=== PATIENT | female | born 1990 ===

== ENCOUNTER 2017-02-05 13:16 | Emergency (ER) | payer OTHER ==
[2017-02-05] MEDS ORDERED: SODIUM CHLORIDE 0.9% 1,000 ML IV STA ×2 (13:44→15:07)
[2017-02-05] MEDS ORDERED: SODIUM CHLORIDE 0.9% 500 ML IV STA (13:44)
[2017-02-05] MEDS ORDERED: ONDANSETRON 4 MG/2 ML VIAL IVP STA (13:44)
[2017-02-05] MEDS ORDERED: PANTOPRAZOLE 40 MG/10 ML VIAL IVP STA (13:45)
[2017-02-05] MEDS ORDERED: DICYCLOMINE 10 MG/ML 2 ML AMP IM STA (13:45)
--- NOTE | 2017-02-05 13:49 | ED ---
General Adult HPI - General Chief complaint: Nausea/Vomiting/Diarrhea Stated complaint: Vomiting Time Seen by Provider: 02/05/17 13:38 Source: patient, RN notes reviewed Mode of arrival: wheelchair Limitations: no limitations - History of Present Illness Initial comments: Patient is a 26-year-old female who presents emergency room today with a chief complaint of nausea vomiting diarrhea that started last night. Patient admits to multiple episodes. States not able to keep anything down. Denies any signs of blood in the emesis or stool. Does admit some abdominal cramping in the upper abdomen. Denies any other complaints or symptoms. States she's never had similar symptoms in the past. Patient denies any recent fever, chills, shortness of breath, chest pain, back pain, numbness or tingling, dysuria or hematuria, constipation, headaches or visual changes, or any other complaints. - Related Data Previous Rx's Medication Instructions Recorded Omeprazole 20 mg PO DAILY #20 capsule. 02/05/17 Ondansetron Odt [Zofran ODT] 4 mg PO Q8HR PRN #20 tab 02/05/17 Allergies Allergy/AdvReac Type Severity Reaction Status Date / Time No Known Allergies Allergy Verified 02/05/17 13:41 Review of Systems ROS Statement: Those systems with pertinent positive or pertinent negative responses have been documented in the HPI. ROS Other: All systems not noted in ROS Statement are negative. Past Medical History Past Medical History: No Reported History History of Any Multi-Drug Resistant Organisms: None Reported Past Surgical History: No Surgical Hx Reported Past Psychological History: No Psychological Hx Reported Smoking Status: Current every day smoker Past Alcohol Use History: None Reported Past Drug Use History: None Reported General Exam - General Exam Comments Initial Comments: General: The patient is awake and alert, in mild distress. Eye: Pupils are equal, round and reactive to light, extra-ocular movements are intact. No nystagmus. There is normal conjunctiva bilaterally. No signs of icterus. Ears, nose, mouth and throat: There are moist mucous membranes and no oral lesions. Neck: The neck is supple, there is no tenderness or JVD. Cardiovascular: There is a regular rate and rhythm. No murmur, rub or gallop is appreciated. Respiratory: Lungs are clear to auscultation, respirations are non-labored, breath sounds are equal. No wheezes, stridor, rales, or rhonchi. Gastrointestinal: Normal appearance abdomen. Normal bowel sounds. Abdomen soft on palpation. Patient does have tenderness in the both right and left upper quadrants along with epigastric areas. No rebound tenderness. No guarding. Musculoskeletal: Normal ROM, no tenderness. Strength 5/5. Sensation intact. Pulses equal bilaterally 2+. Neurological: A&O x 3. CN II-XII intact, There are no obvious motor or sensory deficits. Coordination appears grossly intact. Speech is normal. Skin: Skin is warm and dry and no rashes or lesions are noted. Psychiatric: Cooperative, appropriate mood & affect, normal judgment. Limitations: no limitations Course Vital Signs 02/05/17 02/05/17 13:18 15:22 Temperature 98.1 F 98 F Pulse Rate 74 76 Respiratory 20 18 Rate Blood Pressure 132/79 126/74 O2 Sat by Pulse 100 100 Oximetry Medical Decision Making - Medical Decision Making Patient reexamined at this time shows no signs of distress she is currently sitting up in the stretcher eating crackers and drinking. She states she's feeling much better here in emergency room. Her labs been reviewed does show mildly elevated amylase lipase. Patient's ultrasound shows no acute abnormalities. Patient does admit to drinking 2 days ago prior to when the symptoms started. Patient did have an 18,000 white count. This is felt to be reactive due to her multiple episodes of nausea vomiting. Case discussed in detail with attending physician Dr. Emerson. At this time her abdomen was soft nontender and she's feeling much better. Patient will be discharged home with nausea medication advised return if symptoms increase or worsen or for any other concerns. She states understanding and is in agreement. - Lab Data Result diagrams: 02/05/17 13:40 02/05/17 13:40 Lab Results 02/05/17 02/05/17 02/05/17 Range/Units 13:40 13:40 14:00 WBC 18.2 H (3.8-10.6) k/uL RBC 4.79 (3.80-5.40) m/uL Hgb 15.1 (11.4-16.0) gm/dL Hct 44.3 (34.0-46.0) % MCV 92.6 (80.0-100.0) fL MCH 31.5 (25.0-35.0) pg MCHC 34.0 (31.0-37.0) g/dL RDW 13.0 (11.5-15.5) % Plt Count 304 (150-450) k/uL Neutrophils % 86 % Lymphocytes % 8 % Monocytes % 5 % Eosinophils % 0 % Basophils % 0 % Neutrophils # 15.7 H (1.3-7.7) k/uL Lymphocytes # 1.5 (1.0-4.8) k/uL Monocytes # 0.9 (0-1.0) k/uL Eosinophils # 0.0 (0-0.7) k/uL Basophils # 0.0 (0-0.2) k/uL Sodium 140 (137-145) mmol/L Potassium 3.7 (3.5-5.1) mmol/L Chloride 102 (98-107) mmol/L Carbon Dioxide 18 L (22-30) mmol/L Anion Gap 20 mmol/L BUN 15 (7-17) mg/dL Creatinine 0.68 (0.52-1.04) mg/dL Est GFR (MDRD) Af Amer >60 (>60 ml/min/1.73 sqM) Est GFR (MDRD) Non-Af >60 (>60 ml/min/1.73 sqM) Glucose 116 H (74-99) mg/dL Calcium 10.2 (8.4-10.2) mg/dL Total Bilirubin 2.3 H (0.2-1.3) mg/dL AST 32 (14-36) U/L ALT 21 (9-52) U/L Alkaline Phosphatase 63 (38-126) U/L Total Protein 8.5 H (6.3-8.2) g/dL Albumin 5.3 H (3.5-5.0) g/dL Amylase 128 H (30-110) U/L Lipase 457 H (23-300) U/L Urine Color Urine Appearance (Clear) Urine pH (5.0-8.0) Ur Specific [place] (1.001-1.035) Urine Protein (Negative) Urine Glucose (UA) (Negative) Urine Ketones (Negative) Urine Blood (Negative) Urine Nitrite (Negative) Urine Bilirubin (Negative) Urine Urobilinogen (<2.0) mg/dL Ur Leukocyte Esterase (Negative) Urine RBC (0-5) /hpf Urine WBC (0-5) /hpf Ur Squamous Epith Cells (0-4) /hpf Calcium Oxalate Crystal (None) /hpf Urine Mucus (None) /hpf Urine HCG, Qual Not Detected (Not Detectd) 02/05/17 Range/Units 14:00 WBC (3.8-10.6) k/uL RBC (3.80-5.40) m/uL Hgb (11.4-16.0) gm/dL Hct (34.0-46.0) % MCV (80.0-100.0) fL MCH (25.0-35.0) pg MCHC (31.0-37.0) g/dL RDW (11.5-15.5) % Plt Count (150-450) k/uL Neutrophils % % Lymphocytes % % Monocytes % % Eosinophils % % Basophils % % Neutrophils # (1.3-7.7) k/uL Lymphocytes # (1.0-4.8) k/uL Monocytes # (0-1.0) k/uL Eosinophils # (0-0.7) k/uL Basophils # (0-0.2) k/uL Sodium (137-145) mmol/L Potassium (3.5-5.1) mmol/L Chloride (98-107) mmol/L Carbon Dioxide (22-30) mmol/L Anion Gap mmol/L BUN (7-17) mg/dL Creatinine (0.52-1.04) mg/dL Est GFR (MDRD) Af Amer (>60 ml/min/1.73 sqM) Est GFR (MDRD) Non-Af (>60 ml/min/1.73 sqM) Glucose (74-99) mg/dL Calcium (8.4-10.2) mg/dL Total Bilirubin (0.2-1.3) mg/dL AST (14-36) U/L ALT (9-52) U/L Alkaline Phosphatase (38-126) U/L Total Protein (6.3-8.2) g/dL Albumin (3.5-5.0) g/dL Amylase (30-110) U/L Lipase (23-300) U/L Urine Color Yellow Urine Appearance Cloudy H (Clear) Urine pH 6.5 (5.0-8.0) Ur Specific [place] 1.025 (1.001-1.035) Urine Protein 2+ H (Negative) Urine Glucose (UA) Negative (Negative) Urine Ketones 4+ H (Negative) Urine Blood Small H (Negative) Urine Nitrite Negative (Negative) Urine Bilirubin Negative (Negative) Urine Urobilinogen 3.0 (<2.0) mg/dL Ur Leukocyte Esterase Negative (Negative) Urine RBC 4 (0-5) /hpf Urine WBC 5 (0-5) /hpf Ur Squamous Epith Cells 8 H (0-4) /hpf Calcium Oxalate Crystal Few H (None) /hpf Urine Mucus Moderate H (None) /hpf Urine HCG, Qual (Not Detectd) Disposition Clinical Impression: Acute pancreatitis Disposition: HOME SELF-CARE Condition: Good Instructions: Pancreatitis (ED) Additional Instructions: Please use medication as discussed. Please follow-up with family doctor in the next 2 days of symptoms have not improved. Please return to emergency room if the symptoms increase or worsen or for any other concerns. Prescriptions: Omeprazole 20 mg PO DAILY #20 capsule. Ondansetron Odt [Zofran ODT] 4 mg PO Q8HR PRN #20 tab PRN Reason: Nausea Referrals: None,Stated [Primary Care Provider] - 1-2 days Richard Cox DO [STAFF PHYSICIAN] - 1-2 days Time of Disposition: 16:01
[2017-02-05 14:02] LABS: Basophils % (A) 0 %; CH 32.5; CHCM 35.2; Eosinophils % (A) 0 %; HCT 44.3 % (34.0-46.0); HDW 2.15; HGB 15.1 gm/dL (11.4-16.0); Luc # (Auto) 0.12; Luc % (Auto) 1; Lymphocytes # (A) 1.5 k/uL (1.0-4.8); Lymphocytes % (A) 8 %; MCH 31.5 pg (25.0-35.0); MCV 92.6 fL (80.0-100.0); Mean Platelet Volume 8.3; Monocytes # (A) 0.9 k/uL (0-1.0); Monocytes % (A) 5 %; Neutrophils # (A) 15.7 k/uL (1.3-7.7); Neutrophils % (A) 86 %; RBC 4.79 m/uL (3.80-5.40); WBC 18.2 k/uL (3.8-10.6); WBC (Perox) 17.67
[2017-02-05 14:13] LABS: ALT 21 U/L (9-52); AST 32 U/L (14-36); Alkaline Phosphatase 63 U/L (38-126); Amylase 128 U/L (30-110); Anion Gap 20 mmol/L; Blood Urea Nitrogen 15 mg/dL (7-17); Calcium 10.2 mg/dL (8.4-10.2); Carbon Dioxide 18 mmol/L (22-30); Chloride 102 mmol/L (98-107); Glucose 116 mg/dL (74-99); Non-African American GFR(MDRD) >60 (>60 ml/min/1.73 sqM); Potassium 3.7 mmol/L (3.5-5.1); Sodium 140 mmol/L (137-145); Total Bilirubin 2.3 mg/dL (0.2-1.3); Total Protein 8.5 g/dL (6.3-8.2)
[2017-02-05 14:15] LABS: Appearance,Urine Cloudy (Clear); Bilirubin,Urine Negative (Negative); Calcium Oxalate Crystals,Urine Few /hpf; Glucose,Urine (UA) Negative (Negative); Ketones,Urine 4+ (Negative); Leukocyte Esterase,Urine Negative (Negative); Mucus,Urine Moderate /hpf; Nitrite,Urine Negative (Negative); PH, Urine 6.5 (5.0-8.0); Particle Count 17769; Protein,Urine 2+ (Negative); RBC,Urine 4 /hpf (0-5); Specific Gravity,Urine 1.025 (1.001-1.035); Squamous Epithelial Cell,Urine 8 /hpf (0-4); UA Billing (MACRO vs. MICRO) MICRO; WBC,Urine 5 /hpf (0-5)
[2017-02-05] MEDS ORDERED: HYDROmorphone 1 MG/ML 1 ML SYRINGE IVP STA (14:30)
--- NOTE | 2017-02-05 15:05 | US ---
EXAMINATION TYPE: US abdomen limited DATE OF EXAM: 02/05/2017 COMPARISON: NONE CLINICAL HISTORY: Pain. EC patient with epigastric pain, nausea and vomiting x 2 days EXAM MEASUREMENTS: Liver Length: 16.3 cm Gallbladder Wall: 0.2 cm CBD: 0.2 cm Right Kidney: 11.5 x 4.8 x 3.7 cm Pancreas: wnl Liver: wnl Gallbladder: wnl Evidence for sonographic Zamora's sign: No CBD: wnl Right Kidney: wnl IMPRESSION: Normal right upper quadrant abdominal sonogram. No gallstones or dilated ducts.
[2017-02-05 16:18] VITALS: BP 108/65; PULSE 64; RESP 20; TEMP 98.1
== END 2017-02-05 16:23 | disposition home or self-care (01) ==
LOC: EC 13:16
DX: K85.90 Acute pancreatitis without necrosis or infection, unspecified (principal); R74.8 Abnormal levels of other serum enzymes; R11.2 Nausea with vomiting, unspecified; F17.200 Nicotine dependence, unspecified, uncomplicated
CPT/HCPCS: 36415; 80053; 82150; 83690; 85025; 81001; 81025; 76705; 99284; 96374; 96375 ×2; 96361 ×2; 96372; J0500; J2405; J1170; C9113

== ENCOUNTER 2020-11-09 09:56 | Emergency (ER) | payer OTHER ==
[2020-11-09 10:07] VITALS: BP 148/85; PULSE 68; RESP 18; TEMP 97.9
[2020-11-09] MEDS ORDERED: SODIUM CHLORIDE 0.9% 1,000 ML IV STA (10:19)
[2020-11-09] MEDS ORDERED: ONDANSETRON 4 MG/2 ML VIAL IVP STA ×2 (10:19→11:30)
--- NOTE | 2020-11-09 10:28 | ED ---
Nausea/Vomiting/Diarrhea HPI - General Chief complaint: Nausea/Vomiting/Diarrhea Stated complaint: , NVD, Abn labs Time Seen by Provider: 11/09/20 10:10 Source: patient, RN notes reviewed Mode of arrival: ambulatory Limitations: no limitations - History of Present Illness Initial comments: 30-year-old underweight white female presents to the emergency room with 5 weeks of nausea and vomiting. States started October 07 when she found out she was . Patient denies any other medical history. has been seen at [facility] multiple times for the nausea and vomiting prescribed Zofran which she ran out of 2 days ago. Patient states took Pepcid this morning with no relief. Having watery emesis for past 3 days with Epigastric pain. Patient states she has an appointment with the [employer] doctor on the . patient denies any vaginal bleeding or pelvic pain. Patient admits to marijuana use 1-2 times a week, denies any other illicit drug use. Patient also admits to living in a conversion van however for the last couple days has been staying with her sister because of the vomiting. Patient states baby's father is not in the picture. MD complaint: nausea, vomiting, diarrhea, abdominal pain -: week(s) (5, since 10/07) Description of Vomiting: watery Location: epigastric Radiation: none Severity: moderate Severity scale (1-10): 7 Quality: cramping Consistency: constant Improves with: medication (ran out of zofran 2 days ago) Worsens with: vomiting Context: other (6 weeks ) Associated Symptoms: loss of appetite - Related Data Home Medications Medication Instructions Recorded Confirmed Famotidine [Pepcid] 20 mg PO BID 11/09/20 11/09/20 Yck-[id number] Acid 1 cap PO DAILY 11/09/20 11/09/20 [-U Capsule (formulary)] Previous Rx's Medication Instructions Recorded Ondansetron Odt [Zofran Odt] 4 mg PO Q8HR PRN #10 tab 11/09/20 Allergies Allergy/AdvReac Type Severity Reaction Status Date / Time Bleach (Sodium Hypochlorite) Allergy Rash/Hives Verified 11/09/20 10:39 Review of Systems ROS Statement: Those systems with pertinent positive or pertinent negative responses have been documented in the HPI. ROS Other: All systems not noted in ROS Statement are negative. Past Medical History Past Medical History: No Reported History History of Any Multi-Drug Resistant Organisms: None Reported Past Surgical History: No Surgical Hx Reported Past Psychological History: No Psychological Hx Reported Smoking Status: Former smoker Past Alcohol Use History: None Reported Past Drug Use History: Marijuana General Exam Limitations: no limitations General appearance: alert, in no apparent distress Head exam: Present: atraumatic, normocephalic, normal inspection Eye exam: Present: normal appearance, PERRL, EOMI. Absent: scleral icterus, conjunctival injection, periorbital swelling Pupils: Present: mydriatic ENT exam: Present: normal exam (tongue piercing), mucous membranes moist Neck exam: Present: normal inspection, full ROM. Absent: tenderness, meningismus, lymphadenopathy Respiratory exam: Present: normal lung sounds bilaterally. Absent: respiratory distress, wheezes, rales, rhonchi, stridor Cardiovascular Exam: Present: regular rate, normal rhythm, normal heart sounds. Absent: systolic murmur, diastolic murmur, rubs, gallop, clicks GI/Abdominal exam: Present: soft, normal bowel sounds. Absent: distended, tenderness, guarding, rebound, rigid Neurological exam: Present: alert, oriented X3, CN II-XII intact Psychiatric exam: Present: normal affect, normal mood Skin exam: Present: warm, dry, intact, normal color. Absent: rash Course Vital Signs 11/09/20 10:02 Temperature 97.9 F Pulse Rate 68 Respiratory 18 Rate Blood Pressure 148/85 O2 Sat by Pulse 98 Oximetry Medical Decision Making - Medical Decision Making Case discussed with Dr. Jules, patient with white count 14.7 likely from vomiting, potassium 3.7 urine with no ketones. Patient given 2 doses of Zofran and 50 mg of Benadryl with some relief from vomiting. She has an appointment on the with her [employer]. Will provide Zofran at discharge to help with hyperemesis. Patient will be given a list of shelters to use as needed if unable to stay with her sister. - Lab Data Result diagrams: 11/09/20 10:24 11/09/20 10:24 Lab Results 11/09/20 11/09/20 11/09/20 Range/Units 10:24 10:24 10:28 WBC 14.7 H (3.8-10.6) k/uL RBC 4.07 (3.80-5.40) m/uL Hgb 12.9 (11.4-16.0) gm/dL Hct 37.9 (34.0-46.0) % MCV 92.9 (80.0-100.0) fL MCH 31.8 (25.0-35.0) pg MCHC 34.2 (31.0-37.0) g/dL RDW 13.3 (11.5-15.5) % Plt Count 374 (150-450) k/uL MPV 7.3 Neutrophils % 80 % Lymphocytes % 14 % Monocytes % 4 % Eosinophils % 0 % Basophils % 0 % Neutrophils # 11.8 H (1.3-7.7) k/uL Lymphocytes # 2.1 (1.0-4.8) k/uL Monocytes # 0.6 (0-1.0) k/uL Eosinophils # 0.1 (0-0.7) k/uL Basophils # 0.0 (0-0.2) k/uL Sodium 136 L (137-145) mmol/L Potassium 3.7 (3.5-5.1) mmol/L Chloride 103 (98-107) mmol/L Carbon Dioxide 24 (22-30) mmol/L Anion Gap 9 mmol/L BUN 10 (7-17) mg/dL Creatinine 0.53 (0.52-1.04) mg/dL Est GFR (CKD-EPI)AfAm >90 (>60 ml/min/1.73 sqM) Est GFR (CKD-EPI)NonAf >90 (>60 ml/min/1.73 sqM) Glucose 99 (74-99) mg/dL Calcium 9.5 (8.4-10.2) mg/dL Total Bilirubin 1.7 H (0.2-1.3) mg/dL AST 22 (14-36) U/L ALT 12 (4-34) U/L Alkaline Phosphatase 38 (38-126) U/L Total Protein 6.8 (6.3-8.2) g/dL Albumin 4.1 (3.5-5.0) g/dL Urine Color Yellow Urine Appearance Turbid H (Clear) Urine pH 6.5 (5.0-8.0) Ur Specific [place] 1.019 (1.001-1.035) Urine Protein 1+ H (Negative) Urine Glucose (UA) Negative (Negative) Urine Ketones Negative (Negative) Urine Blood Negative (Negative) Urine Nitrite Negative (Negative) Urine Bilirubin Negative (Negative) Urine Urobilinogen 2.0 (<2.0) mg/dL Ur Leukocyte Esterase Small H (Negative) Urine RBC 2 (0-5) /hpf Urine WBC 1 (0-5) /hpf Ur Squamous Epith Cells 27 H (0-4) /hpf Amorphous Sediment Rare H (None) /hpf Urine Mucus Rare H (None) /hpf Disposition Clinical Impression: Hyperemesis gravidarum, Vomiting during Disposition: HOME SELF-CARE Condition: Good Additional Instructions: Please call prison for safe place to stay and follow-up with the [employer] as already scheduled on the . Prescriptions: Ondansetron Odt [Zofran Odt] 4 mg PO Q8HR PRN #10 tab PRN Reason: Nausea Is patient prescribed a controlled substance at d/c from ED?: No Referrals: None,Stated [Primary Care Provider] - 1-2 days Time of Disposition: 12:03
[2020-11-09 10:40] LABS: Basophils % (A) 0 %; Eosinophils # (A) 0.1 k/uL (0-0.7); Eosinophils % (A) 0 %; HCT 37.9 % (34.0-46.0); HGB 12.9 gm/dL (11.4-16.0); Lymphocytes # (A) 2.1 k/uL (1.0-4.8); Lymphocytes % (A) 14 %; MCH 31.8 pg (25.0-35.0); MCHC 34.2 g/dL (31.0-37.0); MCV 92.9 fL (80.0-100.0); Mean Platelet Volume 7.3; Monocytes # (A) 0.6 k/uL (0-1.0); Monocytes % (A) 4 %; Neutrophils # (A) 11.8 k/uL (1.3-7.7); Neutrophils % (A) 80 %; Platelet Count 374 k/uL (150-450); RBC 4.07 m/uL (3.80-5.40); RDW 13.3 % (11.5-15.5); WBC 14.7 k/uL (3.8-10.6)
[2020-11-09 10:43] LABS: Amorphous Sediment,Urine Rare /hpf; Appearance,Urine Turbid (Clear); Bilirubin,Urine Negative (Negative); Blood,Urine Negative (Negative); Color,Urine Yellow; Glucose,Urine (UA) Negative (Negative); Ketones,Urine Negative (Negative); Leukocyte Esterase,Urine Small (Negative); Mucus,Urine Rare /hpf; Nitrite,Urine Negative (Negative); PH, Urine 6.5 (5.0-8.0); Protein,Urine 1+ (Negative); RBC,Urine 2 /hpf (0-5); Specific Gravity,Urine 1.019 (1.001-1.035); Squamous Epithelial Cell,Urine 27 /hpf (0-4); WBC,Urine 1 /hpf (0-5)
[2020-11-09 10:51] LABS: ALT 12 U/L (4-34); AST 22 U/L (14-36); African American GFR (CKD) >90 (>60 ml/min/1.73 sqM); Albumin 4.1 g/dL (3.5-5.0); Alkaline Phosphatase 38 U/L (38-126); Anion Gap 9 mmol/L; Blood Urea Nitrogen 10 mg/dL (7-17); Calcium 9.5 mg/dL (8.4-10.2); Carbon Dioxide 24 mmol/L (22-30); Chloride 103 mmol/L (98-107); Glucose 99 mg/dL (74-99); Non-African American GFR(CKD) >90 (>60 ml/min/1.73 sqM); Potassium 3.7 mmol/L (3.5-5.1); Sodium 136 mmol/L (137-145); Total Bilirubin 1.7 mg/dL (0.2-1.3); Total Protein 6.8 g/dL (6.3-8.2)
--- NOTE | 2020-11-09 11:05 | US ---
EXAMINATION TYPE: Transabdominal DATE OF EXAM: 11/09/2020 10:55 AM COMPARISON: NONE CLINICAL HISTORY: r/o ectopic. N/V/D, symptoms for 3 days, EXAM PERFORMED: OBTA EXAM MEASUREMENTS: GESTATIONAL AGE / DATING Physician Established: Not yet established Dates by LMP: (9 weeks/1 days) EDC: 06/13/2021 Dates by First Scan: No previous this is first scan Dates by Current Scan for: (11 weeks/0 days) EDC: 05/31/2021 MATERNAL ANATOMY Uterus: 9.3 x 9.3 x 5.7cm Right Ovary: not seen due to bowel gas and enlarging UT Left Ovary: 2.6 x 2.5 x 2.0cm Post CDS / Adnexa: wnl Presence of free fluid: no Presence of corpus luteal cyst: not seen Presence of subchorionic bleed: no GESTATION / SURVEY CRL: 4.0cm (11 weeks/0 days) MSD: wnl Yolk Sac (normal less than 6mm): 0.2cm Heart Rate: 153 bpm Rhythm: Normal IUP: Viable IUP Date of LMP: 09/06/2020 IMPRESSION: Single intrauterine gestation estimated at 11 weeks 0 days gestation based on crown-rump length. Card iac activity measures 153 bpm was observed during the study.
[2020-11-09] MEDS ORDERED: diphenhydrAMINE 50 MG/ML 1 ML VIAL IVP STA (11:44)
== END 2020-11-09 12:14 | disposition home or self-care (01) ==
LOC: EC 09:56
DX: O21.0 Mild hyperemesis gravidarum (principal); O21.9 Vomiting of pregnancy, unspecified; Z3A.11 11 weeks gestation of pregnancy; Z79.899 Other long term (current) drug therapy; Z87.891 Personal history of nicotine dependence
CPT/HCPCS: 36415; 80053; 85025; 81001; 84702; 76801; 99284; 96374; 96375; 96376; 96361; J1200; J2405

== ENCOUNTER 2021-02-11 10:10 | Observation (INO) | payer OTHER ==
[2021-02-11] MEDS ORDERED: METOCLOPRAMIDE 5 MG/ML 2 ML VIAL IVP STA (11:00)
[2021-02-11] MEDS: LACTATED RINGERS 1,000 ML IV SCH ×8 (11:05→21:38)
[2021-02-11 11:22] LABS: Basophils % (A) 0 %; Eosinophils # (A) 0.1 k/uL (0-0.7); Eosinophils % (A) 1 %; HCT 34.8 % (34.0-46.0); Lymphocytes # (A) 1.4 k/uL (1.0-4.8); Lymphocytes % (A) 6 %; MCH 32.4 pg (25.0-35.0); MCHC 34.5 g/dL (31.0-37.0); MCV 93.9 fL (80.0-100.0); Mean Platelet Volume 7.5; Monocytes # (A) 0.5 k/uL (0-1.0); Monocytes % (A) 2 %; Neutrophils # (A) 21.8 k/uL (1.3-7.7); Neutrophils % (A) 91 %; Platelet Count 321 k/uL (150-450); RDW 12.4 % (11.5-15.5)
[2021-02-11 11:33] LABS: Potassium 3.9 mmol/L (3.5-5.1)
[2021-02-11 11:34] LABS: ALT 9 U/L (4-34); AST 21 U/L (14-36); African American GFR (CKD) >90 (>60 ml/min/1.73 sqM); Albumin 3.7 g/dL (3.5-5.0); Alkaline Phosphatase 68 U/L (38-126); Amylase 76 U/L (30-110); Anion Gap 4 mmol/L; Blood Urea Nitrogen 5 mg/dL (7-17); Calcium 8.9 mg/dL (8.4-10.2); Carbon Dioxide 22 mmol/L (22-30); Chloride 108 mmol/L (98-107); Glucose 103 mg/dL (74-99); Lipase 101 U/L (23-300); Non-African American GFR(CKD) >90 (>60 ml/min/1.73 sqM); Sodium 134 mmol/L (137-145); Total Bilirubin 0.4 mg/dL (0.2-1.3); Total Protein 6.5 g/dL (6.3-8.2)
[2021-02-11 11:40] LABS: Amorphous Sediment,Urine Occasional /hpf; Appearance,Urine Turbid (Clear); Bacteria,Urine Rare /hpf; Bilirubin,Urine Negative (Negative); Blood,Urine Moderate (Negative); Color,Urine Yellow; Glucose,Urine (UA) Negative (Negative); Ketones,Urine 2+ (Negative); Leukocyte Esterase,Urine Trace (Negative); Mucus,Urine Rare /hpf; Nitrite,Urine Negative (Negative); PH, Urine 8.5 (5.0-8.0); Protein,Urine Trace (Negative); RBC,Urine 176 /hpf (0-5); Specific Gravity,Urine 1.016 (1.001-1.035); Squamous Epithelial Cell,Urine 52 /hpf (0-4); Urobilinogen,Urine <2.0 mg/dL (<2.0); WBC,Urine 5 /hpf (0-5)
[2021-02-11 11:43] LABS: Amphetamine Screen,Urine Not Detected (NotDetected); Barbiturate Screen,Urine Not Detected (NotDetected); Benzodiazepines Screen,Urine Not Detected (NotDetected); Cocaine Screen,Urine Not Detected (NotDetected); Methadone Screen, Urine Not Detected (NotDetected); Opiate Screen,Urine Not Detected (NotDetected); Oxycodone Screen, Urine Not Detected (NotDetected); Phencyclidine Screen,Urine Not Detected (NotDetected); Tricyclic Antidepressant,Urine Not Detected (NotDetected); Urn Cannabinoid Scrn Detected (NotDetected)
[2021-02-11] MEDS: diphenhydrAMINE 50 MG/ML 1 ML VIAL IVP PRN (12:08)
[2021-02-11] MEDS ORDERED: ONDANSETRON 4 MG/2 ML VIAL IVP PRN (13:04)
[2021-02-11] MEDS ORDERED: METOCLOPRAMIDE 5 MG/ML 2 ML VIAL IVP PRN (13:04)
[2021-02-11] MEDS ORDERED: ACETAMINOPHEN IV (For NPO) 1,000 MG in EMPTY BAG 1 BAG IVPB PRN (13:08)
--- NOTE | 2021-02-11 13:56 | US ---
EXAMINATION TYPE: US kidneys/renal and bladder DATE OF EXAM: 02/11/2021 COMPARISON: NONE CLINICAL HISTORY: Hematuria. EXAM MEASUREMENTS: Right Kidney: 13.0 x 4.9 x 5.0 cm Left Kidney: 11.5 x 5.6 x 4.7 cm Right Kidney: Moderate hydronephrosis Left Kidney: No hydronephrosis or masses seen Bladder: wnl Bilateral Jets seen: Left jet visualized Right hydronephrosis. No nephrolithiasis is seen. No masses are identified. The urinary bladder is anechoic. Left ureteral jets are seen. IMPRESSION: Moderate right hydronephrosis with no right ureteral jet visualized in the urinary bladder. Obstructi on is a possibility.
--- NOTE | 2021-02-11 13:58 | US ---
EXAMINATION TYPE: US OB >= 14 wk fetus DATE OF EXAM: 02/11/2021 COMPARISON: US 11/09/2020 CLINICAL HISTORY: Abdominal pain TECHNIQUE: Transabdominal (TA) GESTATIONAL AGE / DATING Physician Established: (24 weeks/3 days) EDC: 05/31/2021 Dates by First Scan: (24 weeks/3 days) EDC: 05/31/2021 Dates by Current Scan: (24 weeks/2 days) EDC: 06/01/2021 SURVEY IUP: Single PLACENTA: Posterior PREVIA: Low Lying LISA: 14.1 cm Normal CERVICAL LENGTH (transabdominal: norm > 3.0cm): 3.2 cm BIOMETRY PRESENTATION: Vertex LIE: Longitudinal BPD: 5.9 cm 24 weeks / 1 days HC: 22.4 cm 24 weeks / 3 days AC: 19.1 cm 23 weeks / 6 days FL: 4.4 cm 24 weeks / 5 days ESTIMATED WEIGHT IN GRAMS: 667 grams ESTIMATED WEIGHT IN LBS/OZ: 1 lbs. 8 oz. WEIGHT PERCENTAGE BASED ON ESTABLISHED DATES: 29% HC/AC: 1.17 Normal FL/AC: 23% Normal HEART RATE: 136 bpm RHYTHM: Normal Viable IUP, measurement consistent with dates. Low lying placenta IMPRESSION: Single live intrauterine measuring approximately 24 weeks and 2 days gestation by sonograph ic criteria. Placenta is 2.2 cm from the internal os, low-lying. Follow-up ultrasound is recommended.
--- NOTE | 2021-02-11 17:15 | P.HPOB ---
History of Present Illness H&P Date: 02/11/21 Chief Complaint: N/V/abdominal pain and . This patient is a 30 yr EDC [birth year] estimated gestational age 24 and 3/7 weeks who presents to L&D with complaints of N/V/abdominal discomfort. care is per Dr. Arvizu and appears to be complicated by hyperemesis. She states that she went to another hospital and they discharged her with this diagnosis as well. History of alcohol inducted pancreatitis years ago, but nothing recent. Urine here shows large blood. OB ultrasound normal. Renal ultrasound with moderate right hydronephrosis and ?obstruction on the right. Denies fever or flank pain. Review of Systems Constitutional: Reports as per HPI Gastrointestinal: Reports abdominal pain Genitourinary: Reports Menstruation: Reports amenorrhea Past Medical History Additional Past Medical History / Comment(s): Pancreatitis, gastritis. History of Any Multi-Drug Resistant Organisms: None Reported Past Surgical History: No Surgical Hx Reported Past Anesthesia/Blood Transfusion Reactions: No Reported Reaction Past Psychological History: No Psychological Hx Reported Smoking Status: Current every day smoker Past Alcohol Use History: None Reported Past Drug Use History: Marijuana - Past Family History Mother Family Medical History: Renal Disease Medications and Allergies Allergies Allergy/AdvReac Type Severity Reaction Status Date / Time Bleach (Sodium Hypochlorite) Allergy Rash/Hives Verified 02/11/21 10:59 Exam Vital Signs Temp Pulse Resp BP Pulse Ox 02/11/21 16:17 98.0 F 72 16 128/76 99 02/11/21 16:00 98.0 F 76 16 128/76 99 02/11/21 12:38 97.6 F 68 16 137/68 99 Intake and Output 02/11/21 02/11/21 02/11/21 06:59 14:59 22:59 Output Total 200 Balance -200 Output: Emesis 200 Other: # Voids 1 Weight 58.967 kg 58.967 kg - OBG Physical Exam Abdomen: bowel sounds normal, no diffuse tenderness, no bruit present, no guarding noted, no hepatomegaly, no splenomegaly, no mass Results Result Diagrams: 02/11/21 11:05 02/11/21 11:05 Abnormal Lab Results - Last 24 Hours (Table) 02/11/21 02/11/21 02/11/21 Range/Units 11:05 11:05 11:05 WBC 24.0 H (3.8-10.6) k/uL RBC 3.70 L (3.80-5.40) m/uL Neutrophils # 21.8 H (1.3-7.7) k/uL Sodium 134 L (137-145) mmol/L Chloride 108 H (98-107) mmol/L BUN 5 L (7-17) mg/dL Creatinine 0.38 L (0.52-1.04) mg/dL Glucose 103 H (74-99) mg/dL Urine Appearance Turbid H (Clear) Urine pH 8.5 H (5.0-8.0) Urine Protein Trace H (Negative) Urine Ketones 2+ H (Negative) Urine Blood Moderate H (Negative) Ur Leukocyte Esterase Trace H (Negative) Urine RBC 176 H (0-5) /hpf Ur Squamous Epith Cells 52 H (0-4) /hpf Amorphous Sediment Occasional H (None) /hpf Urine Bacteria Rare H (None) /hpf Urine Mucus Rare H (None) /hpf U Marijuana (THC) Screen Detected H (NotDetected) Assessment and Plan Assessment: This is a 30yr female 24 weeks gestation with N/V/abdominal pain. Evaluation shows moderate right hydronephrosis with possible obstruction, microscopic hematuria and leukocytosis. Etiology at this time is uncertain, but this could be urinary obstruction/stone (not visualized) and cannot rule out appendicitis given elevated WBC N/V and pain. I am going to admit for IV ABX, serial CBC and consult urology/general surgery. (1) 24 weeks gestation of Current Visit: Yes Status: Acute Code(s): Z3A.24 - 24 WEEKS GESTATION OF SNOMED Code(s): 661128909 (2) Nausea & vomiting Current Visit: Yes Status: Acute Code(s): R11.2 - NAUSEA WITH VOMITING, UNSPECIFIED SNOMED Code(s): 96881533 (3) Abdominal pain Current Visit: Yes Status: Acute Code(s): R10.9 - UNSPECIFIED ABDOMINAL PAIN SNOMED Code(s): 13697196 (4) Hydronephrosis determined by ultrasound Current Visit: Yes Status: Acute Code(s): N13.30 - UNSPECIFIED HYDRONEPHROSIS SNOMED Code(s): 35466653 (5) Substance abuse Current Visit: Yes Status: Acute Code(s): F19.10 - OTHER PSYCHOACTIVE SUBSTANCE ABUSE, UNCOMPLICATED SNOMED Code(s): 33523954
[2021-02-11] MEDS ORDERED: BUTORPHANOL 1 MG/ML 1 ML VIAL IV PRN (18:12)
[2021-02-12] MEDS: diphenhydrAMINE 50 MG/ML 1 ML VIAL IVP PRN (00:10)
[2021-02-12] MEDS: LACTATED RINGERS 1,000 ML IV SCH ×2 (00:34→03:38)
[2021-02-12 06:07] LABS: Basophils % (A) 0 %; Eosinophils # (A) 0.1 k/uL (0-0.7); Eosinophils % (A) 1 %; Lymphocytes # (A) 2.5 k/uL (1.0-4.8); Lymphocytes % (A) 16 %; MCH 33.3 pg (25.0-35.0); MCHC 35.9 g/dL (31.0-37.0); MCV 92.7 fL (80.0-100.0); Mean Platelet Volume 7.4; Monocytes # (A) 0.7 k/uL (0-1.0); Monocytes % (A) 5 %; Neutrophils # (A) 12.1 k/uL (1.3-7.7); Neutrophils % (A) 78 %; Platelet Count 284 k/uL (150-450); RBC 2.91 m/uL (3.80-5.40); RDW 12.4 % (11.5-15.5); WBC 15.6 k/uL (3.8-10.6)
[2021-02-12 06:22] LABS: HGB 9.7 gm/dL (11.4-16.0)
--- NOTE | 2021-02-12 06:35 | P.PN ---
Progress Note - Text Progress Note Date: 02/12/21 Patient was sleeping overnight and is feeling 100 times better. Vital signs are stable and she is afebrile. Abdomen is soft nontender she's no longer having any nausea or vomiting. Repeat CBC shows white count was down to 15.6. Plan today is to advance to a regular diet. Dr. Verdugo will see her sometime this morning for consultation of her hydronephrosis. I do not think general surgery needs to see her this morning because it is evident she does not have appendicitis. I believe she will be stable for discharge home after her noon dose of antibiotics to continue some oral antibiotics for 7 days. She'll follow-up with Dr. Arvizu on Tuesday.
[2021-02-12 09:15] VITALS: BP 122/74; PULSE 71; RESP 20; TEMP 98.3
--- NOTE | 2021-02-12 11:45 | P.GSCN ---
History of Present Illness Consult date: 02/12/21 History of present illness: This is a pleasant 30-year-old female 3 para 2. She is 24 weeks . She comes in with a couple day history of the severe right flank pain nausea vomiting. He was evaluated and found to have right-sided hydronephrosis microscopic hematuria. She had an elevated white count of 24,000. She has no history of stones but her mother is had a significant number of stones up. She is feeling much better this morning after some IV pain medicine and IV fluids. She has not had urinary tract infections other than the odd 1. There is no other urologic history. Review of Systems All systems: negative - Constitutional Denies fever, Denies weight loss - EENT Eyes: denies blurred vision Ears, nose, mouth and throat: Denies dysphagia - Cardiovascular Denies chest pain, Denies shortness of breath - Respiratory Denies cough, Denies 7 - Gastrointestinal Reports as per HPI - Genitourinary Genitourinary: Denies dysuria, Denies hematuria - Integumentary Denies rash, Denies unusual bruising - Neurological Denies headaches, Denies syncope - Hematologic/Lymphatic Denies easy bleeding, Denies easy bruising Past Medical History Past Medical History: No Reported History Additional Past Medical History / Comment(s): Pancreatitis, gastritis. History of Any Multi-Drug Resistant Organisms: None Reported Past Surgical History: No Surgical Hx Reported Past Anesthesia/Blood Transfusion Reactions: No Reported Reaction Past Psychological History: No Psychological Hx Reported Smoking Status: Current every day smoker Past Alcohol Use History: None Reported Past Drug Use History: Marijuana - Past Family History Mother Family Medical History: Renal Disease Medications and Allergies Home Medications Medication Instructions Recorded Confirmed Type cephALEXin [Keflex] 500 mg PO QID #28 bottle 02/12/21 Rx Allergies Allergy/AdvReac Type Severity Reaction Status Date / Time Bleach (Sodium Hypochlorite) Allergy Rash/Hives Verified 02/11/21 10:59 Surgical - Exam Vital Signs Temp Pulse Resp BP Pulse Ox 97.6 F 68 16 137/68 99 02/11/21 12:38 02/11/21 12:38 02/11/21 12:38 02/11/21 12:38 02/11/21 12:38 - General well developed, well nourished, no distress - Eyes PERRL - ENT no hearing loss - Neck no masses - Respiratory normal expansion, normal respiratory effort - Cardiovascular Rhythm: regular - Abdomen , 24 weeks Abdomen: soft, non tender - Integumentary no rash, no growths - Neurologic normal coordination, normal sensation - Musculoskeletal normal posture - Psychiatric oriented to time, oriented to person, oriented to place, speech is normal, memory intact Results - Labs 02/12/21 05:20 02/11/21 11:05 Abnormal Lab Results - Last 24 Hours (Table) 02/11/21 02/11/21 02/12/21 Range/Units 11:05 11:05 05:20 WBC 15.6 H (3.8-10.6) k/uL RBC 2.91 L (3.80-5.40) m/uL Hgb 9.7 L D (11.4-16.0) gm/dL Hct 27.0 L (34.0-46.0) % Neutrophils # 12.1 H (1.3-7.7) k/uL Sodium 134 L (137-145) mmol/L Chloride 108 H (98-107) mmol/L BUN 5 L (7-17) mg/dL Creatinine 0.38 L (0.52-1.04) mg/dL Glucose 103 H (74-99) mg/dL Urine Appearance Turbid H (Clear) Urine pH 8.5 H (5.0-8.0) Urine Protein Trace H (Negative) Urine Ketones 2+ H (Negative) Urine Blood Moderate H (Negative) Ur Leukocyte Esterase Trace H (Negative) Urine RBC 176 H (0-5) /hpf Ur Squamous Epith Cells 52 H (0-4) /hpf Amorphous Sediment Occasional H (None) /hpf Urine Bacteria Rare H (None) /hpf Urine Mucus Rare H (None) /hpf U Marijuana (THC) Screen Detected H (NotDetected) Microbiology - Last 24 Hours (Table) 02/11/21 11:05 Urine Culture - Preliminary Urine,Clean Catch Diabetes panel 02/11/21 Range/Units 11:05 Sodium 134 L (137-145) mmol/L Chloride 108 H (98-107) mmol/L Carbon Dioxide 22 (22-30) mmol/L BUN 5 L (7-17) mg/dL Creatinine 0.38 L (0.52-1.04) mg/dL Glucose 103 H (74-99) mg/dL Calcium 8.9 (8.4-10.2) mg/dL AST 21 (14-36) U/L ALT 9 (4-34) U/L Alkaline Phosphatase 68 (38-126) U/L Total Protein 6.5 (6.3-8.2) g/dL Albumin 3.7 (3.5-5.0) g/dL Calcium panel 02/11/21 Range/Units 11:05 Calcium 8.9 (8.4-10.2) mg/dL Albumin 3.7 (3.5-5.0) g/dL Pituitary panel 02/11/21 Range/Units 11:05 Sodium 134 L (137-145) mmol/L Chloride 108 H (98-107) mmol/L Carbon Dioxide 22 (22-30) mmol/L BUN 5 L (7-17) mg/dL Creatinine 0.38 L (0.52-1.04) mg/dL Glucose 103 H (74-99) mg/dL Calcium 8.9 (8.4-10.2) mg/dL Adrenal panel 02/11/21 Range/Units 11:05 Sodium 134 L (137-145) mmol/L Chloride 108 H (98-107) mmol/L Carbon Dioxide 22 (22-30) mmol/L BUN 5 L (7-17) mg/dL Creatinine 0.38 L (0.52-1.04) mg/dL Glucose 103 H (74-99) mg/dL Calcium 8.9 (8.4-10.2) mg/dL Total Bilirubin 0.4 (0.2-1.3) mg/dL AST 21 (14-36) U/L ALT 9 (4-34) U/L Alkaline Phosphatase 68 (38-126) U/L Total Protein 6.5 (6.3-8.2) g/dL Albumin 3.7 (3.5-5.0) g/dL Assessment and Plan Assessment: Impression: Right-sided flank pain with hydronephrosis, hematuria and . Recommendations: It is possible this patient has or has passed a stone. The hydronephrosis however could be related to the uterus. Regardless since she is feeling better I do not recommend further intervention at this point in time. I do recommend that if she does well during her that she be evaluated for stones after delivering the baby. This is been explained to the patient and her mother. She should follow-up with Dr. Arvizu. If further urologic problems arise please contact us. Otherwise she should see us after she delivers.
== END 2021-02-12 13:30 | disposition home or self-care (01) ==
LOC: FBPOP 10:10 → 4FBP 12:34
PROVIDERS: ADMIT Obstetrics & Gynecology; ATTEND Obstetrics & Gynecology
DX: N13.30 Unspecified hydronephrosis (principal); O26.832 Pregnancy related renal disease, second trimester; R31.29 Other microscopic hematuria; O21.2 Late vomiting of pregnancy; Z20.822 Contact with and (suspected) exposure to COVID-19; Z3A.24 24 weeks gestation of pregnancy; O99.332 Smoking (tobacco) complicating pregnancy, second trimester; F17.200 Nicotine dependence, unspecified, uncomplicated; Z88.8 Allergy status to other drugs, medicaments and biological substances; Z87.19 Personal history of other diseases of the digestive system
CPT/HCPCS: 96376 ×2; 96361; 96365; 96366 ×2; 96367; 96375; 80053; 82150; 83690; 85025 ×2; 81001; 80306; 87086; 87635; 76805; 76770; G0463; G0378 ×2; J1200 ×2; J2765; J0595; J0690 ×3; J2405; J0131; 99214

== ENCOUNTER 2021-03-12 13:59 | Observation (INO) | payer OTHER ==
[2021-03-12] MEDS ORDERED: SODIUM CHLORIDE 0.9% 2,000 ML IV STA (15:23)
[2021-03-12] MEDS ORDERED: METOCLOPRAMIDE 5 MG/ML 2 ML VIAL IVP STA (15:24)
[2021-03-12] MEDS ORDERED: diphenhydrAMINE 50 MG/ML 1 ML VIAL IVP STA (15:24)
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
[2021-03-12 16:05] LABS: ALT 10 U/L (4-34); AST 24 U/L (14-36); African American GFR (CKD) >90 (>60 ml/min/1.73 sqM); Albumin 3.9 g/dL (3.5-5.0); Alkaline Phosphatase 103 U/L (38-126); Amylase 70 U/L (30-110); Anion Gap 8 mmol/L; Blood Urea Nitrogen 6 mg/dL (7-17); Calcium 9.3 mg/dL (8.4-10.2); Carbon Dioxide 21 mmol/L (22-30); Chloride 107 mmol/L (98-107); Glucose 113 mg/dL (74-99); Lipase 61 U/L (23-300); Non-African American GFR(CKD) >90 (>60 ml/min/1.73 sqM); Potassium 3.8 mmol/L (3.5-5.1); Sodium 136 mmol/L (137-145); Total Bilirubin 0.8 mg/dL (0.2-1.3); Total Protein 6.7 g/dL (6.3-8.2)
[2021-03-12 16:20] LABS: Basophils % (A) 0 %; Eosinophils % (A) 0 %; HCT 35.4 % (34.0-46.0); HGB 11.7 gm/dL (11.4-16.0); Lymphocytes # (A) 1.3 k/uL (1.0-4.8); Lymphocytes % (A) 5 %; MCH 31.7 pg (25.0-35.0); MCHC 32.9 g/dL (31.0-37.0); MCV 96.3 fL (80.0-100.0); Mean Platelet Volume 8.1; Monocytes # (A) 0.5 k/uL (0-1.0); Monocytes % (A) 2 %; Neutrophils # (A) 24.9 k/uL (1.3-7.7); Neutrophils % (A) 93 %; Platelet Count 386 k/uL (150-450); RBC 3.68 m/uL (3.80-5.40); RDW 13.2 % (11.5-15.5); WBC 26.8 k/uL (3.8-10.6)
--- NOTE | 2021-03-12 17:01 | US ---
EXAMINATION TYPE: US abdomen limited DATE OF EXAM: 03/12/2021 COMPARISON: NONE CLINICAL HISTORY: RUQ (gallbladder, kidney). Vomiting EXAM MEASUREMENTS: Liver Length: 15.5 cm Gallbladder Wall: .2 cm CBD: .4 cm Right Kidney: 11.2 x 4.1 x 4.2 cm Pancreas: Obscured by bowel gas Liver: wnl Gallbladder: No stones seen Evidence for sonographic Zamora's sign: No CBD: wnl Right Kidney: No hydronephrosis or masses seen IMPRESSION: No acute process.
--- NOTE | 2021-03-12 17:08 | US ---
EXAMINATION TYPE: US OB >= 14 wk fetus DATE OF EXAM: 03/12/2021 COMPARISON: 02/11/2021 CLINICAL HISTORY: painvomiting TECHNIQUE: Standard departmental protocol GESTATIONAL AGE / DATING Physician Established: (28 weeks/4 days) EDC: 05/31/2021 Dates by LMP: (28 weeks/4 days) EDC: 05/31/2021 Dates by First Scan: (28 weeks/4 days) EDC: 05/31/2021 Dates by Current Scan: (29 weeks/1 days) EDC: 05/27/2021 Beta HCG (if available): Not available at this time SURVEY IUP: Single PLACENTA: Posterior PREVIA: No Previa LISA: 14.25 cm Normal CERVICAL LENGTH (transabdominal: norm > 3.0cm): 3.3 cm BIOMETRY PRESENTATION: Vertex LIE: Longitudinal BPD: 7.12 cm 28 weeks / 5 days HC: 27.21 cm 29 weeks / 5 days AC: 24.79 cm 29 weeks / 1 days FL: 5.42 cm 28 weeks / 5 days ESTIMATED WEIGHT IN GRAMS: 1309 grams ESTIMATED WEIGHT IN LBS/OZ: 2 lbs. 14 oz. WEIGHT PERCENTAGE BASED ON ESTABLISHED DATES: 51% HC/AC: 1.10 cm Normal FL/AC: 22 % Normal HEART RATE: 156 bpm RHYTHM: Normal IMPRESSION: Single live intrauterine , measuring approximately 29 weeks 1 day gestation by sonographic c keke. Posterior placenta; no previa.
[2021-03-12] MEDS ORDERED: ONDANSETRON 4 MG/2 ML VIAL IVP STA (17:22)
[2021-03-12 17:25] LABS: Amorphous Sediment,Urine Rare /hpf; Appearance,Urine Cloudy (Clear); Bacteria,Urine Rare /hpf; Bilirubin,Urine Negative (Negative); Blood,Urine Negative (Negative); Color,Urine Yellow; Glucose,Urine (UA) Negative (Negative); Ketones,Urine 4+ (Negative); Leukocyte Esterase,Urine Small (Negative); Mucus,Urine Moderate /hpf; Nitrite,Urine Negative (Negative); Protein,Urine 1+ (Negative); RBC,Urine <1 /hpf (0-5); Specific Gravity,Urine 1.022 (1.001-1.035); Squamous Epithelial Cell,Urine 43 /hpf (0-4); Urobilinogen,Urine <2.0 mg/dL (<2.0); WBC,Urine 6 /hpf (0-5)
[2021-03-12] MEDS: ACETAMINOPHEN TAB 500 MG TAB PO STA ×2 (18:11→18:41)
[2021-03-12] MEDS ORDERED: BUTORPHANOL 1 MG/ML 1 ML VIAL IV STA (19:38)
[2021-03-12] MEDS ORDERED: NALOXONE 0.4 MG/ML 1 ML VIAL IV PRN (19:52)
[2021-03-12] MEDS ORDERED: ONDANSETRON 4 MG/2 ML VIAL IVP PRN (20:53)
[2021-03-12] MEDS ORDERED: METOCLOPRAMIDE 5 MG/ML 2 ML VIAL IVP PRN (20:53)
[2021-03-12] MEDS ORDERED: BUTORPHANOL 1 MG/ML 1 ML VIAL IV PRN (20:55)
[2021-03-12] MEDS ORDERED: diphenhydrAMINE 50 MG/ML 1 ML VIAL IVP PRN (20:57)
[2021-03-12] MEDS: LACTATED RINGERS 1,000 ML IV SCH (20:57)
--- NOTE | 2021-03-12 21:08 | P.HPOB ---
History of Present Illness H&P Date: 03/12/21 Chief Complaint: Nausea vomiting and abdominal pain This is one of multiple hospital admissions for this 30-year-old 3 para 2 female estimated date of confinement 05/31/2021 estimated gestational age 28- 4/7 weeks who presented earlier today to the emergency department with complaints of nausea, vomiting, and abdominal pain. Patient's care is per Dr. Arvizu and I am familiar with this patient because she was admitted for similar circumstances back at 24 weeks. At that time she had elevated white count to 24 and I had her see urology for hydronephrosis. Patient was given IV antibiotics at that time and her white count did come down to 16 and she was remarkably better overnight. This appears to be a chronic problem even that is present when she is not . Patient presented to emergency department at about 2:00 today and I was contacted at approximately 7:30. She was evaluated, treated, and observed in the ER including evaluation with pelvic ultrasound, abdominal ultrasound and blood work. I recommended transfer to labor and delivery immediately for further evaluation and monitoring. Patient denies fever however has had some chills. Patient was most recently in the office and saw Dr. Arvizu 2 days ago. Evaluation today shows a normal obstetrical ultrasound and abdominal ultrasound. She is afebrile. White count however is 26.9. Review of Systems Constitutional: Reports as per HPI Gastrointestinal: Reports abdominal pain, Reports nausea, Reports vomiting Genitourinary: Reports as per HPI, Reports Menstruation: Reports amenorrhea Past Medical History Past Medical History: No Reported History Additional Past Medical History / Comment(s): Pancreatitis, gastritis. History of Any Multi-Drug Resistant Organisms: None Reported Past Surgical History: No Surgical Hx Reported Past Anesthesia/Blood Transfusion Reactions: No Reported Reaction Past Psychological History: No Psychological Hx Reported Smoking Status: Current every day smoker Past Alcohol Use History: None Reported Past Drug Use History: Marijuana - Past Family History Mother Family Medical History: Renal Disease Medications and Allergies Home Medications Medication Instructions Recorded Confirmed Type Pnv No.95/Ferrous Fum/Folic AC 1 tab PO ONCE 03/12/21 03/12/21 History [ Multivitamin Tablet] Allergies Allergy/AdvReac Type Severity Reaction Status Date / Time Bleach (Sodium Hypochlorite) Allergy Rash/Hives Verified 03/12/21 20:48 Exam Vital Signs Temp Pulse Resp BP Pulse Ox 07/22/21 20:08 98.2 F 114/78 03/12/21 14:18 97.6 F 65 18 130/73 100 Intake and Output 03/12/21 03/12/21 03/12/21 06:59 14:59 22:59 Output Total 50 Balance -50 Output: Emesis 50 Other: Weight 58.06 kg 128 kg - OBG Physical Exam Abdomen: Abdomen is gravid and nontender. Results Result Diagrams: 03/12/21 15:46 03/12/21 15:46 Abnormal Lab Results - Last 24 Hours (Table) 03/12/21 03/12/21 03/12/21 Range/Units 15:46 15:46 15:46 WBC 26.8 H (3.8-10.6) k/uL RBC 3.68 L (3.80-5.40) m/uL Neutrophils # 24.9 H (1.3-7.7) k/uL Sodium 136 L (137-145) mmol/L Carbon Dioxide 21 L (22-30) mmol/L BUN 6 L (7-17) mg/dL Creatinine 0.44 L (0.52-1.04) mg/dL Glucose 113 H (74-99) mg/dL Urine Appearance Cloudy H (Clear) Urine Protein 1+ H (Negative) Urine Ketones 4+ H (Negative) Ur Leukocyte Esterase Small H (Negative) Urine WBC 6 H (0-5) /hpf Ur Squamous Epith Cells 43 H (0-4) /hpf Amorphous Sediment Rare H (None) /hpf Urine Bacteria Rare H (None) /hpf Urine Mucus Moderate H (None) /hpf Assessment and Plan Assessment: This is a 30-year-old 3 para 2 female 28 and half weeks gestation with history of nausea vomiting and abdominal pain with acute exacerbation and also with elevated white blood cell count. Although there is no evidence of inf ection I'm going to treat her once again with some IV antibiotics, IV hydration, and repeat CBC in the morning. I did discuss treatment plan with the patient and she is agreeable. (1) 28 weeks gestation of Current Visit: Yes Status: Acute Code(s): Z3A.28 - 28 WEEKS GESTATION OF SNOMED Code(s): 13407528 (2) Leukocytosis Current Visit: Yes Status: Acute Code(s): D72.829 - ELEVATED WHITE BLOOD CELL COUNT, UNSPECIFIED SNOMED Code(s): 690233416 (3) Nausea & vomiting Current Visit: Yes Status: Acute Code(s): R11.2 - NAUSEA WITH VOMITING, U NSPECIFIED SNOMED Code(s): 00447565 (4) Abdominal pain Current Visit: No Status: Acute Code(s): R10.9 - UNSPECIFIED ABDOMINAL PAIN SNOMED Code(s): 07867072 (5) Substance abuse Current Visit: No Status: Acute Code(s): F19.10 - OTHER PSYCHOACTIVE SUBSTAN CE ABUSE, UNCOMPLICATED SNOMED Code(s): 08633969
[2021-03-13 01:23] VITALS: RESP 16
[2021-03-13 07:20] LABS: Basophils % (A) 0 %; Eosinophils % (A) 0 %; HCT 29.4 % (34.0-46.0); Lymphocytes # (A) 1.8 k/uL (1.0-4.8); Lymphocytes % (A) 7 %; MCHC 32.9 g/dL (31.0-37.0); MCV 97.2 fL (80.0-100.0); Mean Platelet Volume 8.2; Monocytes # (A) 0.9 k/uL (0-1.0); Monocytes % (A) 3 %; Neutrophils # (A) 23.7 k/uL (1.3-7.7); Neutrophils % (A) 89 %; Platelet Count 338 k/uL (150-450); RBC 3.02 m/uL (3.80-5.40); RDW 13.3 % (11.5-15.5); WBC 26.6 k/uL (3.8-10.6)
[2021-03-13 07:21] LABS: HGB 9.7 gm/dL (11.4-16.0)
[2021-03-13 08:11] VITALS: BP 105/57; PULSE 77; TEMP 98.7
[2021-03-13] MEDS: LACTATED RINGERS 1,000 ML IV SCH ×2 (08:13→11:28)
[2021-03-13] MEDS ORDERED: FAMOTIDINE 20 MG/2 ML VIAL IV SCH (09:00)
--- NOTE | 2021-03-13 12:39 | P.DS ---
Providers Date of admission: 03/12/21 19:54 Expected date of discharge: 03/13/21 Attending physician: Kaylen Arvizu Primary care physician: Stated None - Discharge Diagnosis(es) (1) 28 weeks gestation of Status: Acute (2) GERD (gastroesophageal reflux disease) Status: Acute (3) Leukocytosis Status: Acute (4) Nausea & vomiting Status: Acute Hospital Course: Pt prsented with abdominal pain and N/V at 28 weeks gestation. She also has a wbc of 26 but afebrile. She got IV fluids, pain meds and antiemetics. However, her n/v and pain improved significantly when I gave her pepcid IV. She will be discharged home since she feels better and is tolerating food. Patient Condition at Discharge: Good Plan - Discharge Summary New Discharge Prescriptions: No Action Pnv No.95/Ferrous Fum/Folic AC [ Multivitamin Tablet] 1 tab PO ONCE Discharge Medication List Pnv No.95/Ferrous Fum/Folic AC [ Multivitamin Tablet] 1 tab PO ONCE 03/12/21 [History] Follow up Appointment(s)/Referral(s): None,Stated [Primary Care Provider] - 1-2 days Kaylen Arvizu DO [Doctor of Osteopathic Medicine] - 1 Week Discharge Disposition: HOME SELF-CARE
== END 2021-03-13 12:20 | disposition home or self-care (01) ==
LOC: EC 13:59 → 4FBP 19:54
PROVIDERS: ADMIT Obstetrics & Gynecology; ATTEND Obstetrics & Gynecology
DX: O21.2 Late vomiting of pregnancy (principal); Z3A.28 28 weeks gestation of pregnancy; O99.613 Diseases of the digestive system complicating pregnancy, third trimester; K21.9 Gastro-esophageal reflux disease without esophagitis; R10.10 Upper abdominal pain, unspecified; R19.7 Diarrhea, unspecified; O99.113 Other diseases of the blood and blood-forming organs and certain disorders involving the immune mechanism complicating pregnancy, third trimester; D72.829 Elevated white blood cell count, unspecified; O99.333 Smoking (tobacco) complicating pregnancy, third trimester; F17.200 Nicotine dependence, unspecified, uncomplicated; Z91.048 Other nonmedicinal substance allergy status; Z84.1 Family history of disorders of kidney and ureter
CPT/HCPCS: 96376; 96361 ×2; 96375 ×2; 96374; 99285; 36415; 80053; 82150; 83690; 85025 ×2; 81001; 76705; 76805; G0378 ×2; J1200 ×2; J2765 ×2; J0595; J2405; J0690 ×2

== ENCOUNTER 2021-04-12 13:10 | Observation (INO) | payer OTHER ==
[2021-04-12] MEDS ORDERED: ONDANSETRON 4 MG/2 ML VIAL IVP STA (13:55)
[2021-04-12 14:02] LABS: Amorphous Sediment,Urine Rare /hpf; Appearance,Urine Turbid (Clear); Bacteria,Urine Rare /hpf; Bilirubin,Urine Negative (Negative); Blood,Urine Negative (Negative); Color,Urine Yellow; Glucose,Urine (UA) Negative (Negative); Ketones,Urine 3+ (Negative); Leukocyte Esterase,Urine Negative (Negative); Mucus,Urine Few /hpf; Nitrite,Urine Negative (Negative); PH, Urine 7.5 (5.0-8.0); Protein,Urine Trace (Negative); RBC,Urine 3 /hpf (0-5); Specific Gravity,Urine 1.021 (1.001-1.035); Squamous Epithelial Cell,Urine 9 /hpf (0-4); Urobilinogen,Urine <2.0 mg/dL (<2.0); WBC,Urine 5 /hpf (0-5)
[2021-04-12] MEDS: LACTATED RINGERS 1,000 ML IV SCH ×6 (14:10→20:52)
[2021-04-12] MEDS ORDERED: ACETAMINOPHEN IV (For NPO) 1,000 MG in EMPTY BAG 1 BAG IVPB ONE (15:00)
[2021-04-12] MEDS ORDERED: PROMETHAZINE SUPPOSITORY 12.5 MG SUPP RECTAL STA (15:57)
[2021-04-12] MEDS ORDERED: FAMOTIDINE 20 MG/2 ML VIAL IV STA (17:08)
[2021-04-12] MEDS ORDERED: ACETAMINOPHEN IV (For NPO) 1,000 MG in EMPTY BAG 1 BAG IVPB PRN (18:06)
[2021-04-12] MEDS: ONDANSETRON 4 MG/2 ML VIAL IVP PRN (19:53)
[2021-04-12] MEDS ORDERED: diphenhydrAMINE 50 MG/ML 1 ML VIAL IVP PRN (22:00)
[2021-04-13] VITALS: RESP 16
[2021-04-13] MEDS: LACTATED RINGERS 1,000 ML IV SCH ×3 (00:03→08:01)
[2021-04-13] MEDS: ONDANSETRON 4 MG/2 ML VIAL IVP PRN ×2 (02:14→12:47)
[2021-04-13] MEDS ORDERED: METOCLOPRAMIDE 5 MG/ML 2 ML VIAL IVP PRN (08:08)
[2021-04-13] MEDS ORDERED: FAMOTIDINE 20 MG/2 ML VIAL IV SCH (09:00)
--- NOTE | 2021-04-13 12:20 | P.DS ---
Providers Date of admission: 04/12/21 18:07 Expected date of discharge: 04/13/21 Attending physician: Kaylen Arvizu Primary care physician: Stated None Hospital Course: Patient is doing much better this afternoon. She is tolerating a diet her nausea is essentially completely resolved and depression for Reglan has been 4 to the pharmacy. She is urged aware to return if symptoms are worsening. She'll follow up with Dr. Arvizu approximately 1 week. All the questions are answered for her. Her vital signs are stable and she is afebrile. She is stable for discharge this time. She is requesting discharge as well. I did offer let her stay but she would prefer to be at home. Patient Condition at Discharge: Good Plan - Discharge Summary New Discharge Prescriptions: New Metoclopramide HCl [Reglan] 10 mg PO Q8HR PRN #30 tablet PRN Reason: Nausea No Action Pnv No.95/Ferrous Fum/Folic AC [ Multivitamin Tablet] 1 tab PO ONCE Discharge Medication List Pnv No.95/Ferrous Fum/Folic AC [ Multivitamin Tablet] 1 tab PO ONCE 03/12/21 [History] Metoclopramide HCl [Reglan] 10 mg PO Q8HR PRN #30 tablet 04/13/21 [Rx] Follow up Appointment(s)/Referral(s): Kaylen Arvizu DO [Doctor of Osteopathic Medicine] - 1 Week Activity/Diet/Wound Care/Special Instructions: Return with worsening of symptoms Discharge Disposition: HOME SELF-CARE
[2021-04-13 12:44] VITALS: BP 144/86; PULSE 75; TEMP 98.3
== END 2021-04-13 14:10 | disposition home or self-care (01) ==
LOC: FBPOP 13:10 → 4FBP 18:07
PROVIDERS: ADMIT Obstetrics & Gynecology; ATTEND Obstetrics & Gynecology
DX: R11.2 Nausea with vomiting, unspecified (principal); Z3A.28 28 weeks gestation of pregnancy; R10.9 Unspecified abdominal pain; F17.200 Nicotine dependence, unspecified, uncomplicated; O99.323 Drug use complicating pregnancy, third trimester; F12.90 Cannabis use, unspecified, uncomplicated; O99.113 Other diseases of the blood and blood-forming organs and certain disorders involving the immune mechanism complicating pregnancy, third trimester; D72.829 Elevated white blood cell count, unspecified; Z91.048 Other nonmedicinal substance allergy status; Z87.19 Personal history of other diseases of the digestive system
CPT/HCPCS: 59025; 96376 ×2; 96361 ×2; 96365; 96367; 96375; 81001; G0463; G0378 ×2; J1200; J2405 ×2; J0131; 96360; 99214

== ENCOUNTER 2021-04-16 18:39 | Inpatient (IN) | payer OTHER ==
[2021-04-16] MEDS ORDERED: diphenhydrAMINE 50 MG/ML 1 ML VIAL IVP STA (20:20)
[2021-04-16] MEDS ORDERED: SODIUM CHLORIDE 0.9% 1,000 ML IV STA (20:20)
[2021-04-16] MEDS ORDERED: METOCLOPRAMIDE 5 MG/ML 2 ML VIAL IVP STA (20:20)
[2021-04-16 21:00] LABS: Appearance,Urine Cloudy (Clear); Bilirubin,Urine Negative (Negative); Blood,Urine Negative (Negative); Color,Urine Yellow; Glucose,Urine (UA) Negative (Negative); Ketones,Urine 4+ (Negative); Leukocyte Esterase,Urine Trace (Negative); Mucus,Urine Few /hpf; Nitrite,Urine Negative (Negative); Protein,Urine 1+ (Negative); RBC,Urine <1 /hpf (0-5); Specific Gravity,Urine 1.021 (1.001-1.035); Squamous Epithelial Cell,Urine 8 /hpf (0-4); Urobilinogen,Urine <2.0 mg/dL (<2.0); WBC,Urine 4 /hpf (0-5)
[2021-04-16 21:03] LABS: Basophils % (A) 0 %; Eosinophils % (A) 0 %; HCT 32.8 % (34.0-46.0); HGB 11.2 gm/dL (11.4-16.0); Lymphocytes # (A) 1.6 k/uL (1.0-4.8); Lymphocytes % (A) 5 %; MCH 32.1 pg (25.0-35.0); MCV 94.4 fL (80.0-100.0); Monocytes # (A) 0.7 k/uL (0-1.0); Monocytes % (A) 2 %; Neutrophils % (A) 92 %; Platelet Count 367 k/uL (150-450); Poikilocytosis Slight; RBC 3.47 m/uL (3.80-5.40); RDW 14.7 % (11.5-15.5); WBC 30.5 k/uL (3.8-10.6)
[2021-04-16 21:08] LABS: ALT 10 U/L (4-34); AST 28 U/L (14-36); African American GFR (CKD) >90 (>60 ml/min/1.73 sqM); Albumin 3.3 g/dL (3.5-5.0); Alkaline Phosphatase 147 U/L (38-126); Anion Gap 7 mmol/L; Blood Urea Nitrogen 4 mg/dL (7-17); Calcium 8.6 mg/dL (8.4-10.2); Carbon Dioxide 21 mmol/L (22-30); Chloride 101 mmol/L (98-107); Glucose 90 mg/dL (74-99); Lipase 124 U/L (23-300); Non-African American GFR(CKD) >90 (>60 ml/min/1.73 sqM); Potassium 3.7 mmol/L (3.5-5.1); Sodium 129 mmol/L (137-145); Total Bilirubin 0.9 mg/dL (0.2-1.3)
[2021-04-16] MEDS ORDERED: DEXTROSE 5%-0.45% NACL 1,000 ML IV ONE (22:06)
[2021-04-16] MEDS ORDERED: FAMOTIDINE 20 MG/2 ML VIAL IV STA (23:11)
[2021-04-16] MEDS ORDERED: ONDANSETRON 4 MG/2 ML VIAL IVP STA (23:36)
[2021-04-16] MEDS ORDERED: NALOXONE 0.4 MG/ML 1 ML VIAL IV PRN (23:54)
--- NOTE | 2021-04-16 23:55 | ED ---
Nausea/Vomiting/Diarrhea HPI - General Chief complaint: Nausea/Vomiting/Diarrhea Stated complaint: Vomiting, 34 weeks preg Time Seen by Provider: 04/16/21 20:04 Source: patient Mode of arrival: ambulatory Limitations: no limitations - History of Present Illness Initial comments: 30 year-old female patient who is 29 weeks , presents to the em ergency department for evaluation of vomiting. States she started vomiting at 0400 and has not stopped. Unable to keep down any food or fluids. States she is having some epigastric abdominal pain. Denies radiation through to her back. Denies any lower abdominal pain or cramping. Denies any abnormal vaginal bleeding or discharge. Denies fever or chills. States that she has been having these symptoms throughout her . Has had to be admitted for this before. Did take medication for vomiting at home but believes she vomited it up. Patient denies any recent rash, cough, shortness of breath, chest pain, abdominal pain, nausea, vomiting, diarrhea, constipation, back pain, numbness, tingling, dizziness, weakness, hematuria, dysuria, urinary urgency, urinary frequency, headache, visual changes, or any other complaints. - Related Data Home Medications Medication Instructions Recorded Confirmed Pnv No.95/Ferrous Fum/Folic AC 1 tab PO DAILY 03/12/21 04/16/21 [ Multivitamin Tablet] Previous Rx's Medication Instructions Recorded Metoclopramide HCl [Reglan] 10 mg PO Q8HR PRN #30 tablet 04/13/21 Allergies Allergy/AdvReac Type Severity Reaction Status Date / Time Bleach (Sodium Hypochlorite) Allergy Rash/Hives Verified 04/16/21 23:26 Review of Systems ROS Statement: Those systems with pertinent positive or pertinent negative responses have been documented in the HPI. ROS Other: All systems not noted in ROS Statement are negative. Past Medical History Past Medical History: No Reported History Additional Past Medical History / Comment(s): Pancreatitis, gastritis, marijuana use History of Any Multi-Drug Resistant Organisms: None Reported Past Surgical History: No Surgical Hx Reported Past Anesthesia/Blood Transfusion Reactions: No Reported Reaction Past Psychological History: No Psychological Hx Reported Smoking Status: Current every day smoker - Past Family History Mother Family Medical History: Renal Disease General Exam Limitations: no limitations General appearance: alert, in no apparent distress, other (This is a well- developed, well-nourished adult female patient in no acute distress. Vital signs upon presentation are temperature 97.9F, pulse 81, respirations 16, blood pressure 122/79, pulse ox 99% on room air.) Eye exam: Present: normal appearance, PERRL, EOMI. Absent: scleral icterus, conjunctival injection, periorbital swelling ENT exam: Present: normal exam, normal oropharynx, mucous membranes moist Respiratory exam: Present: normal lung sounds bilaterally. Absent: respiratory distress, wheezes, rales, rhonchi, stridor Cardiovascular Exam: Present: regular rate, normal rhythm, normal heart sounds. Absent: systolic murmur, diastolic murmur, rubs, gallop, clicks GI/Abdominal exam: Present: soft, normal bowel sounds, other (Gravid abdomen). Absent: distended, tenderness, guarding, rebound, rigid Neurological exam: Present: alert, oriented X3, CN II-XII intact Psychiatric exam: Present: normal affect, normal mood Skin exam: Present: warm, dry, intact, normal color. Absent: rash Course Vital Signs 04/16/21 04/16/21 04/17/21 19:24 22:34 00:43 Temperature 97.9 F 97.6 F Pulse Rate 81 70 Pulse Rate [ 81 Right Brachial] Respiratory 16 16 16 Rate Blood Pressure 122/79 113/64 Blood Pressure 131/71 [Right Arm] O2 Sat by Pulse 99 99 100 Oximetry Medical Decision Making - Medical Decision Making 30-year-old female patient presents to the emergency department today for evaluation of vomiting and . She is 29 weeks' . Labs reviewed and did reveal elevated white blood cell count at 30.5. Hemoglobin 11.2. Sodium 129. BUN/creatinine are normal. Urinalysis shows 4+ ketones. She was given 1 L of normal saline. 1 L of D5 0.45. IV Reglan and Benadryl. She continued to have vomiting so she was given a dose of Zofran. Patient remained feeling unwell, did discuss the case with on-call [employer] Dr. Perales who agreed to admission to the labor and delivery unit. Patient is agreeable to this plan. Case is discussed with my attending Dr. Castillo. - Lab Data Result diagrams: 04/16/21 20:37 04/16/21 20:37 Lab Results 0804/16/21 04/16/21 Range/Units 20:37 20:37 20:37 WBC 30.5 H (3.8-10.6) k/uL RBC 3.47 L (3.80-5.40) m/uL Hgb 11.2 L (11.4-16.0) gm/dL Hct 32.8 L (34.0-46.0) % MCV 94.4 (80.0-100.0) fL MCH 32.1 (25.0-35.0) pg MCHC 34.0 (31.0-37.0) g/dL RDW 14.7 (11.5-15.5) % Plt Count 367 (150-450) k/uL MPV 9.0 Neutrophils % 92 % Lymphocytes % 5 % Monocytes % 2 % Eosinophils % 0 % Basophils % 0 % Neutrophils # 28.0 H (1.3-7.7) k/uL Lymphocytes # 1.6 (1.0-4.8) k/uL Monocytes # 0.7 (0-1.0) k/uL Eosinophils # 0.0 (0-0.7) k/uL Basophils # 0.0 (0-0.2) k/uL Poikilocytosis Slight Sodium 129 L (137-145) mmol/L Potassium 3.7 (3.5-5.1) mmol/L Chloride 101 (98-107) mmol/L Carbon Dioxide 21 L (22-30) mmol/L Anion Gap 7 mmol/L BUN 4 L (7-17) mg/dL Creatinine 0.38 L (0.52-1.04) mg/dL Est GFR (CKD-EPI)AfAm >90 (>60 ml/min/1.73 sqM) Est GFR (CKD-EPI)NonAf >90 (>60 ml/min/1.73 sqM) Glucose 90 (74-99) mg/dL Calcium 8.6 (8.4-10.2) mg/dL Total Bilirubin 0.9 (0.2-1.3) mg/dL AST 28 (14-36) U/L ALT 10 (4-34) U/L Alkaline Phosphatase 147 H (38-126) U/L Total Protein 6.0 L (6.3-8.2) g/dL Albumin 3.3 L (3.5-5.0) g/dL Lipase 124 (23-300) U/L Urine Color Yellow Urine Appearance Cloudy H (Clear) Urine pH 7.0 (5.0-8.0) Ur Specific [place] 1.021 (1.001-1.035) Urine Protein 1+ H (Negative) Urine Glucose (UA) Negative (Negative) Urine Ketones 4+ H (Negative) Urine Blood Negative (Negative) Urine Nitrite Negative (Negative) Urine Bilirubin Negative (Negative) Urine Urobilinogen <2.0 (<2.0) mg/dL Ur Leukocyte Esterase Trace H (Negative) Urine RBC <1 (0-5) /hpf Urine WBC 4 (0-5) /hpf Ur Squamous Epith Cells 8 H (0-4) /hpf Urine Mucus Few H (None) /hpf Disposition Clinical Impression: Vomiting during Disposition: ADMITTED IP TO THIS [facility] Condition: Serious Decision to Admit Reason: Admit from EC Decision Date: 04/16/21 Decision Time: 23:54
[2021-04-17] MEDS: LACTATED RINGERS 1,000 ML IV ONE ×3 (01:40→16:00)
[2021-04-17 07:34] LABS: ALT 9 U/L (4-34); AST 25 U/L (14-36); African American GFR (CKD) >90 (>60 ml/min/1.73 sqM); Albumin 3.1 g/dL (3.5-5.0); Alkaline Phosphatase 140 U/L (38-126); Anion Gap 8 mmol/L; Blood Urea Nitrogen 3 mg/dL (7-17); Calcium 8.5 mg/dL (8.4-10.2); Carbon Dioxide 23 mmol/L (22-30); Chloride 102 mmol/L (98-107); Glucose 95 mg/dL (74-99); Non-African American GFR(CKD) >90 (>60 ml/min/1.73 sqM); Potassium 3.5 mmol/L (3.5-5.1); Sodium 133 mmol/L (137-145); Total Bilirubin 0.9 mg/dL (0.2-1.3); Total Protein 5.7 g/dL (6.3-8.2)
[2021-04-17 07:41] LABS: Basophils % (A) 0 %; Eosinophils % (A) 0 %; HCT 29.3 % (34.0-46.0); HGB 10.1 gm/dL (11.4-16.0); Lymphocytes % (A) 8 %; MCHC 34.3 g/dL (31.0-37.0); MCV 93.1 fL (80.0-100.0); Mean Platelet Volume 8.4; Monocytes # (A) 1.2 k/uL (0-1.0); Monocytes % (A) 5 %; Neutrophils # (A) 21.1 k/uL (1.3-7.7); Neutrophils % (A) 86 %; Platelet Count 360 k/uL (150-450); RBC 3.14 m/uL (3.80-5.40); RDW 14.4 % (11.5-15.5); WBC 24.7 k/uL (3.8-10.6)
[2021-04-17] MEDS ORDERED: FAMOTIDINE 20 MG/2 ML VIAL IV SCH (09:00)
--- NOTE | 2021-04-17 13:12 | P.HPOB ---
History of Present Illness H&P Date: 04/17/21 Chief Complaint: N/V/D 22-year-old presents at 33 weeks and 5 days with nausea vomiting and diarrhea. She's had horrible acid reflux with this and been admitted several times for intractable nausea and vomiting. Usually this on the left about 24 hours, Zofran and Reglan help and she goes home. This is her second admission this week and the medication does not seem to be helping. Review of Systems All systems: negative Constitutional: Denies chills, Denies fever Eyes: denies blurred vision, denies pain Ears, nose, mouth and throat: Denies headache, Denies sore throat Cardiovascular: Denies chest pain, Denies shortness of breath Respiratory: Denies cough Gastrointestinal: Denies abdominal pain, Denies diarrhea, Denies nausea, Denies vomiting Genitourinary: Denies dysuria, Denies hematuria Musculoskeletal: Denies myalgias Integumentary: Denies pruritus, Denies rash Neurological: Denies numbness, Denies weakness Psychiatric: Denies anxiety, Denies depression Endocrine: Denies fatigue, Denies weight change Past Medical History Past Medical History: No Reported History Additional Past Medical History / Comment(s): Pancreatitis, gastritis, marijuana use History of Any Multi-Drug Resistant Organisms: None Reported Past Surgical History: No Surgical Hx Reported Past Anesthesia/Blood Transfusion Reactions: No Reported Reaction Past Psychological History: No Psychological Hx Reported Smoking Status: Current every day smoker - Past Family History Mother Family Medical History: Renal Disease Medications and Allergies Home Medications Medication Instructions Recorded Confirmed Type Pnv No.95/Ferrous Fum/Folic AC 1 tab PO DAILY 03/12/21 04/16/21 History [ Multivitamin Tablet] Metoclopramide HCl [Reglan] 10 mg PO Q8HR PRN #30 tablet 04/13/21 04/16/21 Rx Allergies Allergy/AdvReac Type Severity Reaction Status Date / Time Bleach (Sodium Hypochlorite) Allergy Rash/Hives Verified 04/16/21 23:26 Exam Osteopathic Statement: *. No significant issues noted on an osteopathic structural exam other than those noted in the History and Physical/Consult. Vital Signs Temp Pulse Pulse Resp BP BP Pulse Ox 04/17/21 09:03 98.4 F 85 16 112/58 04/17/21 04:00 97.0 F L 82 16 155/89 04/17/21 00:43 97.6 F 81 16 131/71 100 04/16/21 22:34 70 16 113/64 99 04/16/21 19:24 97.9 F 81 16 122/79 99 Intake and Output 04/16/21 04/17/21 04/17/21 22:59 06:59 14:59 Output Total 200 Balance -200 Output: Emesis 200 Other: # Voids 1 1 Weight 58.967 kg 58.967 kg Heart: Regular rate and rhythm Lungs: Clear to auscultation bilaterally Abdomen: Soft, nontender Extremities: Negative Homans sign heart tones 140 with moderate variability and reactive [place]: No contractions Results Result Diagrams: 04/17/21 06:40 04/17/21 06:40 Abnormal Lab Results - Last 24 Hours (Table) 04/16/21 04/16/21 04/16/21 Range/Units 20:37 20:37 20:37 WBC 30.5 H (3.8-10.6) k/uL RBC 3.47 L (3.80-5.40) m/uL Hgb 11.2 L (11.4-16.0) gm/dL Hct 32.8 L (34.0-46.0) % Neutrophils # 28.0 H (1.3-7.7) k/uL Monocytes # (0-1.0) k/uL Sodium 129 L (137-145) mmol/L Carbon Dioxide 21 L (22-30) mmol/L BUN 4 L (7-17) mg/dL Creatinine 0.38 L (0.52-1.04) mg/dL Alkaline Phosphatase 147 H (38-126) U/L Total Protein 6.0 L (6.3-8.2) g/dL Albumin 3.3 L (3.5-5.0) g/dL Urine Appearance Cloudy H (Clear) Urine Protein 1+ H (Negative) Urine Ketones 4+ H (Negative) Ur Leukocyte Esterase Trace H (Negative) Ur Squamous Epith Cells 8 H (0-4) /hpf Urine Mucus Few H (None) /hpf 04/17/21 04/17/21 Range/Units 06:40 06:40 WBC 24.7 H (3.8-10.6) k/uL RBC 3.14 L (3.80-5.40) m/uL Hgb 10.1 L (11.4-16.0) gm/dL Hct 29.3 L (34.0-46.0) % Neutrophils # 21.1 H (1.3-7.7) k/uL Monocytes # 1.2 H (0-1.0) k/uL Sodium 133 L (137-145) mmol/L Carbon Dioxide (22-30) mmol/L BUN 3 L (7-17) mg/dL Creatinine 0.42 L (0.52-1.04) mg/dL Alkaline Phosphatase 140 H (38-126) U/L Total Protein 5.7 L (6.3-8.2) g/dL Albumin 3.1 L (3.5-5.0) g/dL Urine Appearance (Clear) Urine Protein (Negative) Urine Ketones (Negative) Ur Leukocyte Esterase (Negative) Ur Squamous Epith Cells (0-4) /hpf Urine Mucus (None) /hpf Assessment and Plan (1) GERD (gastroesophageal reflux disease) Current Visit: No Status: Acute Code(s): K21.9 - GASTRO-ESOPHAGEAL REFLUX DISEASE WITHOUT ESOPHAGITIS SNOMED Code(s): 995427145 (2) 33 weeks gestation of Current Visit: Yes Status: Acute Code(s): Z3A.33 - 33 WEEKS GESTATION OF SNOMED Code(s): 46468144 (3) Vomiting during Current Visit: Yes Status: Acute Code(s): O21.9 - VOMITING OF , UNSPECIFIED SNOMED Code(s): 04868771 Plan: 1. Admit to family place 2. IV fluids 3. Antiemetics 4. I will consult GI at this time considering she's been admitted several times now.
[2021-04-17] MEDS: diphenhydrAMINE 50 MG/ML 1 ML VIAL IVP PRN (16:01)
--- NOTE | 2021-04-17 16:14 | P.CONS ---
History of Present Illness - Reason for Consult Consult date: 04/17/21 GERD, nausea and vomiting Requesting physician: Kaylen Arvizu - Chief Complaint Nausea and vomiting - History of Present Illness [id number] white female G3 weeks who presented to the upper and delivery unit complains of acid reflux with nausea and vomiting for the last 3 days duration. Patient states she's had acid reflux with nausea and vomiting this entire however the last 3 days it has been worse. She states she has the acid reflux, then starts hiccuping and then begins to vomit. She has been on Reglan at home and Pepcid. States not much improvement. She is denying any hematemesis or coffee-ground emesis. Denies any abdominal pain. She denies any fevers or chills. Review of Systems REVIEW OF SYSTEMS: CARDIOPULMONARY: No chest pain or shortness of breath. Gastrointestinal: Acid reflux with nausea and vomiting. No hematemesis, coffee- ground emesis. No rectal bleeding, or melena. GENITOURINARY: No dysuria or hematuria. MUSCULOSKELETAL: Reports normal range of motion., Joint pain. SKIN: No rashes. No jaundice. ENDOCRINE: No chills, fevers. No excessive weight gain or loss. No polydipsia or polyuria. PSYCHIATRIC: Unremarkable. NEUROLOGY: No change in mental status. Denies dizziness, headache. ENT: Vision unremarkable. CONSTITUTIONAL: No recent weight loss. No fever, chills, night sweats. Past Medical History Past Medical History: No Reported History Additional Past Medical History / Comment(s): Pancreatitis, gastritis, marijuana use History of Any Multi-Drug Resistant Organisms: None Reported Past Surgical History: No Surgical Hx Reported Past Anesthesia/Blood Transfusion Reactions: No Reported Reaction Past Psychological History: No Psychological Hx Reported Smoking Status: Current every day smoker - Past Family History Mother Family Medical History: Renal Disease Medications and Allergies Home Medications Medication Instructions Recorded Confirmed Type Pnv No.95/Ferrous Fum/Folic AC 1 tab PO DAILY 03/12/21 04/16/21 History [ Multivitamin Tablet] Metoclopramide HCl [Reglan] 10 mg PO Q8HR PRN #30 tablet 04/13/21 04/16/21 Rx Allergies Allergy/AdvReac Type Severity Reaction Status Date / Time Bleach (Sodium Hypochlorite) Allergy Rash/Hives Verified 04/16/21 23:26 Physical Exam Vitals: Vital Signs Temp Pulse Pulse Resp BP BP Pulse Ox 04/17/21 12:00 98.2 F 77 16 150/84 98 04/17/21 09:03 98.4 F 85 16 112/58 04/17/21 04:00 97.0 F L 82 16 155/89 04/17/21 00:43 97.6 F 81 16 131/71 100 04/16/21 22:34 70 16 113/64 99 04/16/21 19:24 97.9 F 81 16 122/79 99 Intake and Output 04/17/21 04/17/21 04/17/21 06:59 14:59 22:59 Output Total 200 Balance -200 Output: Emesis 200 Other: # Voids 1 2 Weight 58.967 kg General appearance: The patient is alert, oriented, appears in no acute distress. HET: Head is normocephalic and atraumatic. Conjunctiva pink. Sclera anicteric. Neck: Supple without lymphadenopathy. Abdomen: Soft, abdomen, nontender, nondistended with bowel sounds. No guarding or rigidity. Extremities: Normal skin color and turgor. No pedal edema Skin: No rashes, no jaundice Neurological: No focal deficits. Alert and oriented 3. Results CBC & Chem 7: 04/17/21 06:40 04/17/21 06:40 Labs: Abnormal Lab Results - Last 24 Hours (Table) 04/16/21 04/16/21 04/16/21 Range/Units 20:37 20:37 20:37 WBC 30.5 H (3.8-10.6) k/uL RBC 3.47 L (3.80-5.40) m/uL Hgb 11.2 L (11.4-16.0) gm/dL Hct 32.8 L (34.0-46.0) % Neutrophils # 28.0 H (1.3-7.7) k/uL Monocytes # (0-1.0) k/uL Sodium 129 L (137-145) mmol/L Carbon Dioxide 21 L (22-30) mmol/L BUN 4 L (7-17) mg/dL Creatinine 0.38 L (0.52-1.04) mg/dL Alkaline Phosphatase 147 H (38-126) U/L Total Protein 6.0 L (6.3-8.2) g/dL Albumin 3.3 L (3.5-5.0) g/dL Urine Appearance Cloudy H (Clear) Urine Protein 1+ H (Negative) Urine Ketones 4+ H (Negative) Ur Leukocyte Esterase Trace H (Negative) Ur Squamous Epith Cells 8 H (0-4) /hpf Urine Mucus Few H (None) /hpf 04/17/21 04/17/21 Range/Units 06:40 06:40 WBC 24.7 H (3.8-10.6) k/uL RBC 3.14 L (3.80-5.40) m/uL Hgb 10.1 L (11.4-16.0) gm/dL Hct 29.3 L (34.0-46.0) % Neutrophils # 21.1 H (1.3-7.7) k/uL Monocytes # 1.2 H (0-1.0) k/uL Sodium 133 L (137-145) mmol/L Carbon Dioxide (22-30) mmol/L BUN 3 L (7-17) mg/dL Creatinine 0.42 L (0.52-1.04) mg/dL Alkaline Phosphatase 140 H (38-126) U/L Total Protein 5.7 L (6.3-8.2) g/dL Albumin 3.1 L (3.5-5.0) g/dL Urine Appearance (Clear) Urine Protein (Negative) Urine Ketones (Negative) Ur Leukocyte Esterase (Negative) Ur Squamous Epith Cells (0-4) /hpf Urine Mucus (None) /hpf Assessment and Plan (1) GERD (gastroesophageal reflux disease) Narrative/Plan: 30-year-old female 33 weeks with complaints of acid reflux associated with nausea and vomiting. Patient has had symptoms this entire , it intermittently gets worse at times. She was recently hospitalized at home. She has Reglan and Pepcid at home. Last 3 days duration she's been having severe acid reflux causing hiccups and nausea and vomiting. She is denying any hematemesis or coffee-ground emesis. States she's had a prior history of some gastritis. Denying any abdominal pain, fevers or chills. Will discontinue Pepcid and add Protonix 40 mg twice a day, patient to be discharged home on Protonix. May continue Reglan. Current Visit: No Status: Acute Code(s): K21.9 - GASTRO-ESOPHAGEAL REFLUX DISEASE WITHOUT ESOPHAGITIS SNOMED Code(s): 155780982 (2) Vomiting during Current Visit: Yes Status: Acute Code(s): O21.9 - VOMITING OF , UNSPECIFIED SNOMED Code(s): 91779700 (3) 33 weeks gestation of Current Visit: Yes Status: Acute Code(s): Z3A.33 - 33 WEEKS GESTATION OF SNOMED Code(s): 18517152 Plan: 1. Add Protonix 40 mg IV twice a day, discontinue Pepcid 2. May continue Reglan 3. Diet as tolerated Thank you for this consultation, we'll continue to follow. Dr. Nery Lara I agree with the dictator's note, documented as a scribe by Kay Duncan.
[2021-04-17] MEDS: METOCLOPRAMIDE 5 MG/ML 2 ML VIAL IVP PRN (18:21)
[2021-04-17] MEDS: PANTOPRAZOLE 40 MG/10 ML VIAL IVP SCH (20:50)
[2021-04-18] MEDS: diphenhydrAMINE 50 MG/ML 1 ML VIAL IVP PRN ×2 (00:08→06:08)
[2021-04-18] MEDS: METOCLOPRAMIDE 5 MG/ML 2 ML VIAL IVP PRN ×2 (00:08→06:08)
[2021-04-18] MEDS: BUTORPHANOL 1 MG/ML 1 ML VIAL IV PRN ×2 (08:09→21:03)
[2021-04-18] MEDS: PANTOPRAZOLE 40 MG/10 ML VIAL IVP SCH ×2 (08:50→20:58)
[2021-04-18 11:07] LABS: Basophils % (A) 0 %; Eosinophils % (A) 0 %; HCT 28.9 % (34.0-46.0); HGB 9.6 gm/dL (11.4-16.0); Hypochromasia Slight; Lymphocytes # (A) 1.9 k/uL (1.0-4.8); Lymphocytes % (A) 11 %; MCH 31.8 pg (25.0-35.0); MCHC 33.3 g/dL (31.0-37.0); MCV 95.6 fL (80.0-100.0); Mean Platelet Volume 8.7; Monocytes # (A) 0.8 k/uL (0-1.0); Monocytes % (A) 5 %; Neutrophils # (A) 13.8 k/uL (1.3-7.7); Neutrophils % (A) 83 %; Platelet Count 332 k/uL (150-450); Poikilocytosis Slight; RBC 3.02 m/uL (3.80-5.40); RDW 14.8 % (11.5-15.5); WBC 16.7 k/uL (3.8-10.6)
[2021-04-18 11:13] LABS: ALT 7 U/L (4-34); AST 21 U/L (14-36); African American GFR (CKD) >90 (>60 ml/min/1.73 sqM); Alkaline Phosphatase 130 U/L (38-126); Amylase 43 U/L (30-110); Anion Gap 8 mmol/L; Blood Urea Nitrogen 3 mg/dL (7-17); Calcium 8.5 mg/dL (8.4-10.2); Carbon Dioxide 21 mmol/L (22-30); Chloride 104 mmol/L (98-107); Glucose 71 mg/dL (74-99); Lipase 36 U/L (23-300); Non-African American GFR(CKD) >90 (>60 ml/min/1.73 sqM); Potassium 3.7 mmol/L (3.5-5.1); Sodium 133 mmol/L (137-145); Total Bilirubin 1.6 mg/dL (0.2-1.3); Total Protein 5.6 g/dL (6.3-8.2)
--- NOTE | 2021-04-18 11:50 | P.PN ---
Subjective Progress Note Date: 04/18/21 Principal diagnosis: Nausea and vomiting, abdominal pain Patient was in a severe amount of pain this morning in her epigastric area. She did receive her IV Protonix and Reglan and also received a dose of Stadol. Currently her pain has resolved and she denies any nausea or vomiting at this time. She just had a small bolus and was able to hold that down so far. She feels overall that the change in medication regimen has helped her but understands that she cannot go home on IV Stadol. She is feeling good movement and denies any abdominal contractions. She denies any vaginal bleeding. She also denies any headaches or blurry vision. Objective - Vital Signs Vital signs: Vital Signs Temp 97.5 F L 04/18/21 08:00 Pulse 65 04/18/21 08:00 Resp 17 04/18/21 08:00 BP 161/90 04/18/21 08:00 Pulse Ox 100 04/18/21 08:00 Intake & Output 04/17/21 04/18/21 04/18/21 18:59 06:59 18:59 Output Total 200 1 Balance -200 -1 Output: Emesis 200 1 Other: # Voids 2 2 - Constitutional General appearance: Present: no acute distress - Gastrointestinal General gastrointestinal: Absent: tenderness - Labs CBC & Chem 7: 04/18/21 10:31 04/18/21 10:31 Labs: Abnormal Lab Results - Last 24 Hours (Table) 04/18/21 04/18/21 Range/Units 10:31 10:31 WBC 16.7 H (3.8-10.6) k/uL RBC 3.02 L (3.80-5.40) m/uL Hgb 9.6 L (11.4-16.0) gm/dL Hct 28.9 L (34.0-46.0) % Neutrophils # 13.8 H (1.3-7.7) k/uL Sodium 133 L (137-145) mmol/L Carbon Dioxide 21 L (22-30) mmol/L BUN 3 L (7-17) mg/dL Creatinine 0.42 L (0.52-1.04) mg/dL Glucose 71 L (74-99) mg/dL Total Bilirubin 1.6 H (0.2-1.3) mg/dL Alkaline Phosphatase 130 H (38-126) U/L Total Protein 5.6 L (6.3-8.2) g/dL Albumin 3.0 L (3.5-5.0) g/dL Assessment and Plan Assessment: Intractable nausea and vomiting Epigastric pain Leukocytosis-improving Plan: Her white count overall is improving with hydration. No specific cause of the leukocytosis is apparent at this time. Since she is just starting to tolerate food, I will keep her 1 more day to make sure she does not start to have any further vomiting or return of her epigastric pain. I have advised her to try Tylenol first if she starts to get the epigastric pain again prior to using Stadol. She will take a shower later today to see if this helps with overall comfort. I will repeat her CBC and electrolytes again tomorrow.
[2021-04-18] MEDS ORDERED: ACETAMINOPHEN TAB 325 MG TAB PO PRN (11:55)
[2021-04-18] MEDS: LACTATED RINGERS 1,000 ML IV SCH ×2 (12:54→21:02)
[2021-04-19 04:50] LABS: Basophils % (A) 0 %; Eosinophils % (A) 0 %; HCT 25.3 % (34.0-46.0); HGB 8.6 gm/dL (11.4-16.0); Hypochromasia Slight; Lymphocytes # (A) 2.4 k/uL (1.0-4.8); Lymphocytes % (A) 19 %; MCV 94.2 fL (80.0-100.0); Mean Platelet Volume 8.9; Monocytes # (A) 0.8 k/uL (0-1.0); Monocytes % (A) 6 %; Neutrophils # (A) 9.1 k/uL (1.3-7.7); Neutrophils % (A) 72 %; Platelet Count 292 k/uL (150-450); Poikilocytosis Slight; RBC 2.68 m/uL (3.80-5.40); RDW 14.7 % (11.5-15.5); WBC 12.6 k/uL (3.8-10.6)
[2021-04-19 05:00] LABS: Potassium 3.5 mmol/L (3.5-5.1); Total Bilirubin 1.4 mg/dL (0.2-1.3)
[2021-04-19] MEDS: LACTATED RINGERS 1,000 ML IV SCH ×3 (06:35→21:08)
[2021-04-19] MEDS: METOCLOPRAMIDE 5 MG/ML 2 ML VIAL IVP PRN (08:01)
[2021-04-19] MEDS: BUTORPHANOL 1 MG/ML 1 ML VIAL IV PRN (08:24)
[2021-04-19] MEDS: PANTOPRAZOLE 40 MG/10 ML VIAL IVP SCH ×2 (08:26→21:07)
[2021-04-19 10:09] LABS: ALT <6 U/L (4-34); AST 16 U/L (14-36); Alkaline Phosphatase 108 U/L (38-126)
--- NOTE | 2021-04-19 10:46 | PN ---
PROGRESS NOTE This is a progress note from 04/18/2021. DATE OF SERVICE: 04/18/2021 Patient is a 30-year-old white female who is 33 weeks' , admitted to the hospital with severe epigastric pain and heartburn, nausea and vomiting for the last 3- 4 days' duration. She was started on IV Protonix 40 mg twice daily yesterday and this morning her symptoms are better. She had one episode of emesis this morning. She received some pain medication and she is feeling much better. Her oral intake is still not well; however, the heartburn has resolved. She denies any passive regurgitation. No dysphagia. PHYSICAL EXAMINATION: Appears comfortable. VITAL SIGNS: Stable. Blood pressure is 134/79, pulse rate 65, temperature 97.5. HEENT EXAMINATION: Unremarkable. Conjunctivae pink. Sclerae anicteric. Oral cavity no lesions. CHEST: Clear to auscultation. HEART: Regular rate and rhythm. ABDOMEN: Uterus is palpable. There was mild tenderness in the epigastric area. Rest of the abdomen was benign. EXTREMITIES: No pedal edema. SKIN: No rashes. NEURO: Alert and oriented x3. No focal deficits. LABS: WBC 16.7, hemoglobin 9.6. Platelets were normal. Basic metabolic panel was within normal limits. Alkaline phosphatase 130. AST and ALT are 21 and 7, respectively. T- bilirubin is 1.6. IMPRESSION: 1. Severe epigastric pain associated with heartburn, nausea, vomiting, probably related to severe gastroesophageal reflux worsening with her third trimester of . On IV Protonix 40 mg twice daily, and her symptoms are gradually improving. 2. Mild leukocytosis, resolving. 3. Elevated bilirubin and alkaline phosphatase, but normal serum transaminases. RECOMMENDATIONS: 1. Continue with IV Protonix 40 mg twice daily and Reglan as needed. 2. Encourage oral intake. 3. Continue symptomatic and supportive care. 4. Repeat labs in the morning. Will follow with you closely. Thank you for this consultation. MMODL / IJN: [id number] /
--- NOTE | 2021-04-19 11:18 | PN ---
PROGRESS NOTE DATE OF DICTATION: 04/19/2021 Patient is a 30-year-old white female who is in her third trimester of , admitted to the hospital with severe epigastric pain associated with nausea and vomiting for the last 3-4 days' duration. She was seen on consultation two days ago and was started on IV Protonix for possible GERD causing her symptoms. Yesterday she was feeling better, but today she started complaining of worsening epigastric pain, unable to tolerate any food, requiring pain medications. She continues to remain on Protonix 40 mg twice daily as well as Reglan as needed and Stadol for pain control. She describes her pain mostly in the epigastric area which is worse with eating. No fever, chills or night sweats. On review of her records, she did have ultrasound of the abdomen done a month ago that showed normal-appearing gallbladder with no gallstones. Labs from yesterday did show mild elevation of bilirubin at 1.6, but serum transaminases were within normal limits and alkaline phosphatase was slightly elevated at 130. This morning bilirubin is 1.4, but the rest of the labs are still pending. WBC has improved to 12.6. PHYSICAL EXAMINATION: She appears comfortable. No apparent distress. VITAL SIGNS: Vital signs are stable. Blood pressure is 169/89, pulse rate 65, temperature 97.9. HEENT EXAMINATION: Unremarkable. Conjunctivae pink. Sclerae anicteric. Oral cavity no lesions. NECK: No JVD. No lymph node enlargement. CHEST: Clear to auscultation. HEART: Regular rate and rhythm. ABDOMEN: Soft. There was very minimal tenderness in the epigastric area. Uterus was enlarged and palpable at the epigastric area. Rest of the abdomen was benign. EXTREMITIES: No pedal edema. NEURO: She is alert and oriented x3. No focal deficits. LABS: WBC 12.6, hemoglobin 8.6. Platelets are normal. Basic metabolic panel is within normal limits. Bilirubin is 1.4. Rest of the labs are pending. Lipase was normal yesterday. IMPRESSION: 1. Persistent severe epigastric pain associated with nausea and vomiting for the last 4-5 days' duration. She is on symptomatic therapy with IV PPIs, Reglan, as well as Stadol, with minimal relief in her symptoms. Ultrasound of the abdomen done a month ago was unremarkable, but at this time because of the persistent symptoms, will rule out gallbladder pathology. 2. Leukocytosis, resolving. 3. Mild elevation of bilirubin, but normal serum transaminases. Repeat labs from this morning are still pending. 4. Thirty-three weeks of . RECOMMENDATIONS: 1. Obtain ultrasound of the gallbladder to rule out gallstones. 2. Obtain surgical consultation. 3. Continue with IV Protonix 40 mg twice daily. 4. Reglan and pain medications as needed. Thank you for this consultation. No GI Service available from tomorrow. MMODL / IJN: [id number] /
--- NOTE | 2021-04-19 11:46 | P.PN ---
Progress Note - Text Progress Note Date: 04/19/21 Patient states she ate some yogurt that was full fat this morning and shortly after began vomiting again and had severe abdominal pain. She was given a Tylenol but vomited that up. She was then given Stadol which did control her pain. She states she has not been able to hold much down since she has been admitted. She continues to have episodes of nausea and vomiting after eating. Her bilirubin was elevated yesterday and continues to be elevated today. Her liver enzymes are within normal limits. Appreciate GI input. Ultrasound of the gallbladder is pending for today. Also surgical consult is pending for today. I have advised the patient that if the specialist feel that surgery is warranted to remove her gallbladder, I would plan to transfer her to maternal medicine since she is approximately 33 weeks and this potentially could cause some issues such as labor or infection for her. I would feel comfortable if she was in a facility that could facilitate delivery of a infant if this was to happen. She could possibly also benefit from TPN since she has had this problem off and on throughout her . Patient is understanding. Will await ultrasound and consultation.
--- NOTE | 2021-04-19 13:22 | US ---
EXAMINATION TYPE: US gallbladder DATE OF EXAM: 04/19/2021 COMPARISON: US 2020 CLINICAL HISTORY: epi pain. Abdomen pain, N/V, patient is 33 weeks EXAM MEASUREMENTS: Liver Length: 15.1 cm Gallbladder Wall: 0.2 cm CBD: 0.3 cm Right Kidney: 11.9 x 5.8 x 5.2 cm Pancreas: visualized portions wnl, limited by overlying midline bowel gas Liver: wnl Gallbladder: wnl Evidence for sonographic Zamora's sign: no CBD: visualized portions wnl, limited by overlying bowel gas Right Kidney: hydronephrosis IMPRESSION: Mild to moderate right-sided hydronephrosis has developed in the interval
[2021-04-20] MEDS: LACTATED RINGERS 1,000 ML IV SCH ×3 (04:28→15:35)
[2021-04-20] MEDS: PANTOPRAZOLE 40 MG/10 ML VIAL IVP SCH (09:15)
[2021-04-20 11:57] VITALS: RESP 16
--- NOTE | 2021-04-20 12:19 | P.PN ---
Progress Note - Text Progress Note Date: 04/20/21 Pt is now 34 weeks 1 day. Still inpatient with N/V and acid reflux. The protonix that replaced the iv pepcid is helping. She was able to keep down some broth last night and some apple sauce this morning. Good movement and no contractions. still waiting for surgical consult. GI is off this week. VSS Heart RRR Abdomen: soft, gravid FHT: category 1 tracing toco: no contractions labs: wbc coming down but so is her hemoglobin. she is anemic at 8.6 A1. 34weeks 1 day 2. intractable N/V with acid reflux p1. cont current management as she is starting to tolerate some food 2. await surgical recs (gallbladder US wnl)
[2021-04-20 15:34] VITALS: BP 130/72; PULSE 65; TEMP 98.4
--- NOTE | 2021-04-20 17:19 | P.GSCN ---
History of Present Illness Consult date: 04/20/21 Reason for Consult: Nausea, GERD History of present illness: This a 22-year-old female who is approximately 34 weeks chest sedation. Patient has had complaints of nausea and GERD throughout her entire . Patient states that her GERD was present before her . She is currently able to eat and drink. She denies any abdominal pain. Her ultrasound of the gallbladder is negative for gallstones Past Medical History Past Medical History: No Reported History Additional Past Medical History / Comment(s): Pancreatitis, gastritis, marijuana use History of Any Multi-Drug Resistant Organisms: None Reported Past Surgical History: No Surgical Hx Reported Past Anesthesia/Blood Transfusion Reactions: No Reported Reaction Past Psychological History: No Psychological Hx Reported Smoking Status: Current every day smoker - Past Family History Mother Family Medical History: Renal Disease Medications and Allergies Home Medications Medication Instructions Recorded Confirmed Type Pnv No.95/Ferrous Fum/Folic AC 1 tab PO DAILY 03/12/21 04/16/21 History [ Multivitamin Tablet] Metoclopramide HCl [Reglan] 10 mg PO Q8HR PRN #30 tablet 04/13/21 04/16/21 Rx Allergies Allergy/AdvReac Type Severity Reaction Status Date / Time Bleach (Sodium Hypochlorite) Allergy Rash/Hives Verified 04/16/21 23:26 Surgical - Exam Vital Signs Temp Pulse Resp BP Pulse Ox 97.9 F 81 16 122/79 99 04/16/21 19:24 04/16/21 19:24 04/16/21 19:24 04/16/21 19:24 04/16/21 19:24 - General well developed, well nourished, no distress - Eyes PERRL - ENT normal pinna - Neck no masses - Respiratory normal expansion - Cardiovascular Rhythm: regular - Abdomen Abdomen: soft, non tender Results - Labs 04/19/21 04:25 04/19/21 04:25 Assessment and Plan Assessment: 22-year-old female with chronic nausea related to . Her GERD symptoms have been exacerbated by . Patient will follow-up after her delivery for possible treatment of GERD. No surgical intervention is planned.
== END 2021-04-20 17:50 | disposition home or self-care (01) | DRG 832 ==
LOC: EC 18:39 → 4FBP 04-17 00:01 → OBSVTOIN 04-18 11:55
PROVIDERS: ADMIT Obstetrics & Gynecology; ATTEND Obstetrics & Gynecology
DX: O99.613 Diseases of the digestive system complicating pregnancy, third trimester (principal); R17 Unspecified jaundice; K86.1 Other chronic pancreatitis; O21.2 Late vomiting of pregnancy; D72.829 Elevated white blood cell count, unspecified; K21.00 Gastro-esophageal reflux disease with esophagitis, without bleeding; F17.210 Nicotine dependence, cigarettes, uncomplicated; O99.333 Smoking (tobacco) complicating pregnancy, third trimester; O26.613 Liver and biliary tract disorders in pregnancy, third trimester; O99.891 Other specified diseases and conditions complicating pregnancy; O99.113 Other diseases of the blood and blood-forming organs and certain disorders involving the immune mechanism complicating pregnancy, third trimester; Z3A.34 34 weeks gestation of pregnancy; Z91.048 Other nonmedicinal substance allergy status
CPT/HCPCS: 36415; 76705; 80051; 80053; 81001; 82150; 82247; 83690; 84075; 84450; 84460; 85025; 96361; 96374; 96375; 99285

== ENCOUNTER 2021-06-03 06:00 | Inpatient (IN) | payer OTHER ==
[2021-06-03] MEDS ORDERED: TERBUTALINE 1 MG/ML VIAL SQ PRN (06:19)
[2021-06-03] MEDS ORDERED: OXYTOCIN 10 UNIT/ML 1 ML VIAL IM PRN (06:19)
[2021-06-03] MEDS ORDERED: METHYLERGONOVINE 0.2 MG/ML 1 ML AMP IM PRN (06:19)
[2021-06-03] MEDS ORDERED: LIDOCAINE 0.5% (PF) 5 MG/ML (50 ML SDV) SQ PRN (06:19)
[2021-06-03] MEDS ORDERED: CARBOPROST TROMETHAMINE 250 MCG/ML 1 ML AMP IM PRN (06:19)
[2021-06-03] MEDS ORDERED: OXYTOCIN 30 UNITS/500 ML NS 30 UNIT in SALINE 1 500ML.BAG IV SCH ×2 (06:30→12:30)
[2021-06-03] MEDS: LACTATED RINGERS 1,000 ML IV SCH ×2 (06:40→13:07)
[2021-06-03 06:50] LABS: Basophils % (A) 0 %; Eosinophils # (A) 0.1 k/uL (0-0.7); Eosinophils % (A) 1 %; HCT 31.8 % (34.0-46.0); HGB 10.2 gm/dL (11.4-16.0); Lymphocytes # (A) 2.3 k/uL (1.0-4.8); Lymphocytes % (A) 16 %; MCH 28.9 pg (25.0-35.0); MCHC 32.1 g/dL (31.0-37.0); MCV 90.1 fL (80.0-100.0); Mean Platelet Volume 9.2; Monocytes # (A) 0.8 k/uL (0-1.0); Monocytes % (A) 5 %; Neutrophils # (A) 10.5 k/uL (1.3-7.7); Neutrophils % (A) 75 %; Platelet Count 310 k/uL (150-450); RBC 3.53 m/uL (3.80-5.40); RDW 14.8 % (11.5-15.5); WBC 13.9 k/uL (3.8-10.6)
[2021-06-03 09:38] LABS: Basophils % (A) 0 %; Eosinophils % (A) 0 %; HCT 31.3 % (34.0-46.0); HGB 10.4 gm/dL (11.4-16.0); Lymphocytes # (A) 2.1 k/uL (1.0-4.8); Lymphocytes % (A) 14 %; MCV 90.8 fL (80.0-100.0); Mean Platelet Volume 9.6; Monocytes # (A) 0.7 k/uL (0-1.0); Monocytes % (A) 4 %; Neutrophils # (A) 12.5 k/uL (1.3-7.7); Neutrophils % (A) 80 %; Platelet Count 276 k/uL (150-450); RBC 3.45 m/uL (3.80-5.40); RDW 14.7 % (11.5-15.5); WBC 15.5 k/uL (3.8-10.6)
[2021-06-03 09:42] LABS: Appearance,Urine Clear (Clear); Bilirubin,Urine Negative (Negative); Blood,Urine Negative (Negative); Color,Urine Yellow; Glucose,Urine (UA) Negative (Negative); Ketones,Urine Negative (Negative); Leukocyte Esterase,Urine Negative (Negative); Nitrite,Urine Negative (Negative); Protein,Urine Negative (Negative); Specific Gravity,Urine 1.009 (1.001-1.035); Urobilinogen,Urine <2.0 mg/dL (<2.0)
[2021-06-03 09:45] LABS: ALT 8 U/L (4-34); AST 22 U/L (14-36); African American GFR (CKD) >90 (>60 ml/min/1.73 sqM); Blood Urea Nitrogen 12 mg/dL (7-17); LDH 514 U/L (313-618); Non-African American GFR(CKD) >90 (>60 ml/min/1.73 sqM); Uric Acid 7.2 mg/dL (3.7-7.4)
[2021-06-03 10:27] LABS: Amphetamine Screen,Urine Not Detected (NotDetected); Barbiturate Screen,Urine Not Detected (NotDetected); Benzodiazepines Screen,Urine Not Detected (NotDetected); Cocaine Screen,Urine Not Detected (NotDetected); Methadone Screen, Urine Not Detected (NotDetected); Opiate Screen,Urine Not Detected (NotDetected); Oxycodone Screen, Urine Not Detected (NotDetected); Phencyclidine Screen,Urine Not Detected (NotDetected); Tricyclic Antidepressant,Urine Not Detected (NotDetected); Urn Cannabinoid Scrn Detected (NotDetected)
[2021-06-03 10:30] LABS: Creatinine,Urine Random 74.3 mg/dL; Protein/Creatinine Ratio,Urine 0.269
[2021-06-03] MEDS: BUTORPHANOL 1 MG/ML 1 ML VIAL IV PRN ×2 (10:39→11:55)
[2021-06-03] MEDS ORDERED: hydrALAZINE HCL 20 MG/ML 1 ML VIAL IVP STA (10:52)
[2021-06-03] MEDS ORDERED: diphenhydrAMINE 25 MG CAP PO PRN (12:16)
[2021-06-03] MEDS ORDERED: HYDROCORTISONE 2.5% RECTAL CREAM 30 GM TUBE RECTAL PRN (12:16)
[2021-06-03] MEDS ORDERED: LANOLIN CREAM 5 GM TUBE TOPICAL PRN (12:16)
[2021-06-03] MEDS ORDERED: ZOLPIDEM 5 MG TAB PO PRN (12:16)
[2021-06-03] MEDS ORDERED: BENZOCAINE/MENTHOL SPRAY 1 GM/SPRAY AEROSOL TOPICAL PRN (12:16)
[2021-06-03] MEDS ORDERED: SIMETHICONE 80 MG CHEWABLE PO PRN (12:16)
[2021-06-03] MEDS ORDERED: ACETAMINOPHEN TAB 325 MG TAB PO PRN (12:16)
[2021-06-03] MEDS ORDERED: diphenhydrAMINE 50 MG CAP PO PRN (12:16)
[2021-06-03] MEDS ORDERED: diphenhydrAMINE 50 MG/ML 1 ML VIAL IVP PRN ×2 (12:16)
[2021-06-03] MEDS: IBUPROFEN 600 MG TAB PO PRN ×2 (13:10→23:48)
--- NOTE | 2021-06-03 16:56 | P.HPOB ---
History of Present Illness H&P Date: 06/03/21 Chief Complaint: induction of labor 30 year old presents at 40 weeks 3 days for induction of labor. Her cervix is 2/70/-2 and she is jean carlos irregularly. heart tones 130 with moderate variability and reactive. Review of Systems All systems: negative Constitutional: Denies chills, Denies fever Eyes: denies blurred vision, denies pain Ears, nose, mouth and throat: Denies headache, Denies sore throat Cardiovascular: Denies chest pain, Denies shortness of breath Respiratory: Denies cough Gastrointestinal: Denies abdominal pain, Denies diarrhea, Denies nausea, Denies vomiting Genitourinary: Denies dysuria, Denies hematuria Musculoskeletal: Denies myalgias Integumentary: Denies pruritus, Denies rash Neurological: Denies numbness, Denies weakness Psychiatric: Denies anxiety, Denies depression Endocrine: Denies fatigue, Denies weight change Past Medical History Past Medical History: No Reported History Additional Past Medical History / Comment(s): Pancreatitis, gastritis, marijuana use. Obstetric history: She's had 2 previous vaginal deliveries. This is her third . She's had care with me since the first trimester. Blood type is A+, antibodies negative, rubella immune, RPR nonreactive, hepatitis B negative, HIV nonreactive. She has smoked marijuana through the though several times to avoid this. History of Any Multi-Drug Resistant Organisms: None Reported Past Surgical History: No Surgical Hx Reported Past Anesthesia/Blood Transfusion Reactions: No Reported Reaction Past Psychological History: Anxiety Smoking Status: Current every day smoker Past Alcohol Use History: None Reported Additional Past Alcohol Use History / Comment(s): 1/2 - 1 ppd Past Drug Use History: Marijuana Additional Drug Use History / Comment(s): 2 times a day - Past Family History Mother Family Medical History: Renal Disease Medications and Allergies Allergies Allergy/AdvReac Type Severity Reaction Status Date / Time Bleach (Sodium Hypochlorite) Allergy Rash/Hives Verified 06/03/21 06:19 Exam Osteopathic Statement: *. No significant issues noted on an osteopathic structural exam other than those noted in the History and Physical/Consult. Vital Signs Temp Pulse Resp BP Pulse Ox 06/03/21 15:59 98 F 65 16 140/94 06/03/21 13:48 60 16 164/93 06/03/21 13:18 65 16 152/75 06/03/21 13:00 97.9 F 67 16 134/81 06/03/21 12:48 76 16 156/80 06/03/21 12:33 65 16 141/81 06/03/21 12:18 67 16 133/76 06/03/21 12:03 96.7 F L 82 16 127/71 98 06/03/21 11:48 127 H 18 149/98 98 06/03/21 06:21 97.0 F L 85 16 142/90 97 Intake and Output 06/03/21 06/03/21 06/03/21 06:59 14:59 22:59 Intake Total 4.833 Output Total 600 Balance -595.167 Intake: Intake, IV Titration 4.833 Amount Oxytocin 30 Units/500 ml 4.833 Ns 30 unit In Saline 1 500ml.bag @ Per Protocol IV .Q0M VINAY Rx#:[id number] Output: Urine 600 Uretheral (Cedeño) 600 Other: # Voids 1 Weight 68.039 kg Heart: Regular rate and rhythm Lungs: Clear to auscultation bilaterally Abdomen: Soft, nontender Extremities: Negative Homans sign Results Result Diagrams: 06/03/21 09:11 06/03/21 09:11 Abnormal Lab Results - Last 24 Hours (Table) 06/03/21 06/03/21 06/03/21 Range/Units 06:35 09:11 09:15 WBC 13.9 H 15.5 H (3.8-10.6) k/uL RBC 3.53 L 3.45 L (3.80-5.40) m/uL Hgb 10.2 L 10.4 L (11.4-16.0) gm/dL Hct 31.8 L 31.3 L (34.0-46.0) % Neutrophils # 10.5 H 12.5 H (1.3-7.7) k/uL U Marijuana (THC) Screen Detected H (NotDetected) Assessment and Plan (1) Elective induction of labor planned Current Visit: Yes Status: Acute Code(s): KKV3445 - SNOMED Code(s): 287541948 (2) Gestational hypertension Narrative/Plan: new onset, today Current Visit: Yes Status: Acute Code(s): O13.9 - GESTATIONAL HTN W/O SIGNIFICANT PROTEINURIA, UNSP TRIMESTER SNOMED Code(s): 63090865 Plan: 1. Induction of labor with amniotomy and Pitocin 2. Anticipate normal vaginal delivery 3. Preeclamptic labs were negative today
--- NOTE | 2021-06-03 16:59 | P.PROBDLV ---
Vaginal Delivery Note - . Vaginal Delivery Note: 30 year old presents at 40 weeks 3 days for induction of labor. Her cervix is 2/70/-2 and she is jean carlos irregularly. heart tones 130 with moderate variability and reactive. Pitocin was started and amniotomy performed at 7:04 AM, clear fluid noted. She progressed rather quickly throughout the day and her cervix was completely dilated by 11:26 AM. She pushed, delivered a viable female over intact perineum at 11:27 AM. Head delivered OA, nuc avis cord 1 easily reduced, anterior shoulder delivered gentle downward guidance for by posterior shoulder and rest of body. Nose and mouth bulb suctioned, cord clamped and cut, placed mother's abdomen. Apgars 9, 9, weight 7 lbs. 6 oz. Placenta delivered spontaneously, intact with three-vessel cord at 11:30 AM. Vagina, cervix, perineum inspected. In the lacerations were noted. IV Pitocin was given per protocol. Mother and baby were in stable condition. Soon after she delivered at was called back to the room for heavy vaginal bleeding. Cedeño catheter was placed and about 400 mL of urine was easily drained. Uterine massage and evacuation of blood clots plus a dose of Hemabate given in the left thigh resolved her bleeding. Quantitative blood loss was 706 mL.
[2021-06-03] MEDS: LABETALOL 200 MG TAB PO SCH (18:34)
[2021-06-03] MEDS: SENNOSIDES-DOCUSATE SODIUM 1 EACH TAB PO SCH (20:04)
[2021-06-04 08:11] LABS: Basophils % (A) 0 %; Eosinophils % (A) 0 %; HCT 21.6 % (34.0-46.0); Lymphocytes # (A) 2.8 k/uL (1.0-4.8); Lymphocytes % (A) 16 %; MCH 29.3 pg (25.0-35.0); MCHC 31.8 g/dL (31.0-37.0); MCV 92.2 fL (80.0-100.0); Mean Platelet Volume 9.7; Monocytes # (A) 0.6 k/uL (0-1.0); Monocytes % (A) 4 %; Neutrophils # (A) 13.8 k/uL (1.3-7.7); Neutrophils % (A) 78 %; Platelet Count 244 k/uL (150-450); RBC 2.34 m/uL (3.80-5.40); RDW 14.8 % (11.5-15.5); WBC 17.7 k/uL (3.8-10.6)
[2021-06-04 08:31] LABS: HGB 6.9 gm/dL (11.4-16.0)
[2021-06-04] MEDS: LABETALOL 200 MG TAB PO SCH ×2 (08:38→20:50)
[2021-06-04] MEDS: SENNOSIDES-DOCUSATE SODIUM 1 EACH TAB PO SCH ×2 (08:39→20:50)
[2021-06-05 00:29] VITALS: RESP 16
--- NOTE | 2021-06-05 07:28 | P.PNOBGVD ---
Subjective - Subjective Principal diagnosis: S/P NVD PPD #1 Interval history: Patient seen and examined. Denies nausea, vomiting, chest pain, sugars of breath or headache or any vision changes. Patient reports: Reports appetite normal, Reports voiding normally, Reports pain well controlled, Reports ambulating normally : doing well Objective - Latest Vital Signs Latest vital signs: Vital Signs Temp Pulse Resp BP Pulse Ox 06/05/21 00:00 98.0 F 84 16 127/80 98 06/04/21 22:00 98.3 F 86 17 147/81 99 06/04/21 20:00 98.5 F 84 17 153/83 99 06/04/21 18:45 98.4 F 75 16 128/88 99 06/04/21 16:00 98.2 F 90 16 151/93 06/04/21 14:00 16 137/83 06/04/21 12:00 76 16 128/64 06/04/21 10:00 68 16 146/80 06/04/21 08:00 98.1 F 76 16 157/87 Intake and Output 06/04/21 06/05/21 06/05/21 22:59 06:59 14:59 Other: # Voids 2 1 - Exam Lungs: bilateral: normal Chest: Normal S1, Normal S2 Extremities: Present: normal Abdomen: Present: normal appearance, soft Uterus: Present: normal, firm - Labs Labs: Abnormal Lab Results - Last 24 Hours (Table) 06/04/21 Range/Units 07:25 WBC 17.7 H (3.8-10.6) k/uL RBC 2.34 L (3.80-5.40) m/uL Hgb 6.9 L* D (11.4-16.0) gm/dL Hct 21.6 L (34.0-46.0) % Neutrophils # 13.8 H (1.3-7.7) k/uL Assessment and Plan (1) Elective induction of labor planned Current Visit: Yes Status: Resolved Code(s): [id number] - SNOMED Code(s): 894790202 (2) Gestational hypertension Current Visit: Yes Status: Acute Code(s): O13.9 - GESTATIONAL HTN W/O SIGNIFICANT PROTEINURIA, UNSP TRIMESTER SNOMED Code(s): 50209592 (3) Normal vaginal delivery Current Visit: Yes Status: Acute Code(s): O80 - ENCOUNTER FOR FULL-TERM UNCOMPLICATED DELIVERY SNOMED Code(s): 95302608 (4) Acute blood loss anemia Current Visit: Yes Status: Acute Code(s): D62 - ACUTE POSTHEMORRHAGIC ANEMIA SNOMED Code(s): 991982376 Plan: 1. Add labetalol 200 mg twice daily 2. Monitor patient today for blood pressure and s/s of preeclampsia 3. Monitor for symptoms of anemia, currently she is asymptomatic
--- NOTE | 2021-06-05 07:30 | P.DS ---
Providers Date of admission: 06/03/21 06:05 Expected date of discharge: 06/05/21 Attending physician: Kaylen Arvizu Primary care physician: Stated None - Discharge Diagnosis(es) (1) Elective induction of labor planned Current Visit: Yes Status: Resolved (2) Gestational hypertension Current Visit: Yes Status: Acute (3) Normal vaginal delivery Current Visit: Yes Status: Acute (4) Acute blood loss anemia Current Visit: Yes Status: Acute Hospital Course: Patient presented for induction of labor. She underwent normal vaginal delivery. she did have 700 mL blood loss that resolved with Hemabate. She did have some higher blood pressures during labor and then as well. She was put on labetalol 200 mg twice daily which is c ontrolling her blood pressure for the most part. She denies any signs or symptoms of preeclampsia or anemia. Patient will be discharged home day #2 in stable condition to follow-up with me in one week. Plan - Discharge Summary New Discharge Prescriptions: New Ibuprofen [Motrin] 600 mg PO Q6HR PRN #30 tab PRN Reason: Mild Pain (Scale 1 To 3) Labetalol [Trandate] 200 mg PO BID #60 tab Discharge Medication List Ibuprofen [Motrin] 600 mg PO Q6HR PRN #30 tab 06/05/21 [Rx] Labetalol [Trandate] 200 mg PO BID #60 tab 06/05/21 [Rx] Follow up Appointment(s)/Referral(s): Kaylen Arvizu DO [Doctor of Osteopathic Medicine] - 1 Week Discharge Disposition: HOME SELF-CARE
[2021-06-05] MEDS: LABETALOL 200 MG TAB PO SCH (08:59)
[2021-06-05 10:16] VITALS: BP 159/91; PULSE 76; TEMP 97.9
== END 2021-06-05 10:30 | disposition home or self-care (01) | DRG 768 ==
LOC: 4FBP 06:05
PROVIDERS: ADMIT Obstetrics & Gynecology; ATTEND Obstetrics & Gynecology
PROC: 10E0XZZ Delivery of Products of Conception, External Approach (ICD-10-PCS; principal; 2021-06-03)
PROC: 0U997ZZ Drainage of Uterus, Via Natural or Artificial Opening (ICD-10-PCS; 2021-06-03)
PROC: 10907ZC Drainage of Amniotic Fluid, Therapeutic from Products of Conception, Via Natural or Artificial Opening (ICD-10-PCS; 2021-06-03)
PROC: 3E033VJ Introduction of Other Hormone into Peripheral Vein, Percutaneous Approach (ICD-10-PCS; 2021-06-03)
DX: O13.4 Gestational [pregnancy-induced] hypertension without significant proteinuria, complicating childbirth (principal); Z37.0 Single live birth; D62 Acute posthemorrhagic anemia; O99.334 Smoking (tobacco) complicating childbirth; O99.344 Other mental disorders complicating childbirth; O99.02 Anemia complicating childbirth; O69.81X0 Labor and delivery complicated by cord around neck, without compression, not applicable or unspecified; F41.9 Anxiety disorder, unspecified; F17.200 Nicotine dependence, unspecified, uncomplicated; Z3A.40 40 weeks gestation of pregnancy; O72.1 Other immediate postpartum hemorrhage
CPT/HCPCS: 80306; 81003; 82565; 82570; 83615; 84156; 84450; 84460; 84520; 84550; 85025; 86850; 86900; 86901

== ENCOUNTER 2021-08-31 06:48 | Day surgery (SDC) | payer OTHER ==
[2021-08-24 15:25] VITALS: BMI 19.3
[~2021-08-31 06:48] MED LIST: Pre Op ABX Message 1 EACH MISC MISCELLANE ONE
[2021-08-31] MEDS ORDERED: LIDOCAINE 1% (10MG/ML) FOR IV START INTRADERMA PRN (07:14)
[2021-08-31] MEDS ORDERED: ONDANSETRON 4 MG/2 ML VIAL IVP ONE (07:14)
[2021-08-31] MEDS ORDERED: MIDAZOLAM 2 MG/2 ML VIAL IV PRN (07:14)
[2021-08-31] MEDS ORDERED: DEXAMETHASONE SOD PHOSPHATE 4 MG/ML 1 ML VIAL IV ONE (07:14)
[2021-08-31] MEDS ORDERED: HYDROmorphone 0.5 MG/0.5 ML SYRINGE IVP PRN (07:14)
[2021-08-31] MEDS ORDERED: LACTATED RINGERS 1,000 ML IV SCH (07:14)
--- NOTE | 2021-08-31 07:14 | P.HPOB ---
History of Present Illness H&P Date: 08/31/21 Chief Complaint: family planning 30 year old presents for laparoscopic tubal ligation. Review of Systems All systems: negative Constitutional: Denies chills, Denies fever Eyes: denies blurred vision, denies pain Ears, nose, mouth and throat: Denies headache, Denies sore throat Cardiovascular: Denies chest pain, Denies shortness of breath Respiratory: Denies cough Gastrointestinal: Denies abdominal pain, Denies diarrhea, Denies nausea, Denies vomiting Genitourinary: Denies dysuria, Denies hematuria Musculoskeletal: Denies myalgias Integumentary: Denies pruritus, Denies rash Neurological: Denies numbness, Denies weakness Psychiatric: Denies anxiety, Denies depression Endocrine: Denies fatigue, Denies weight change Past Medical History Past Medical History: No Reported History Additional Past Medical History / Comment(s): Pancreatitis, gastritis, History of Any Multi-Drug Resistant Organisms: None Reported Past Surgical History: No Surgical Hx Reported Past Anesthesia/Blood Transfusion Reactions: No Reported Reaction Smoking Status: Current every day smoker - Past Family History Mother Family Medical History: No Reported History, Renal Disease Medications and Allergies Home Medications Medication Instructions Recorded Confirmed Type No Known Home Medications 08/24/21 08/24/21 History Allergies Allergy/AdvReac Type Severity Reaction Status Date / Time Bleach (Sodium Hypochlorite) Allergy Rash/Hives Verified 08/24/21 15:15 Exam Osteopathic Statement: *. No significant issues noted on an osteopathic structural exam other than those noted in the History and Physical/Consult. Heart: Regular rate and rhythm Lungs: Clear to auscultation bilaterally Abdomen: Soft, nontender Extremities: Negative Homans sign Assessment and Plan (1) Family planning Current Visit: Yes Status: Acute Code(s): Z30.09 - ENCOUNTER FOR OTH GENERAL CNSL AND ADVICE ON CONTRACEPTION SNOMED Code(s): 947227034 Plan: 1.laparoscopic tubal ligation
[2021-08-31] MEDS ORDERED: fentaNYL (PF) 50 MCG/ML 2 ML AMP ONE (07:55)
[2021-08-31] MEDS ORDERED: LIDOCAINE 1% INJ 10MG/ML (20 ML MDV) ONE (07:55)
[2021-08-31] MEDS ORDERED: SUCCINYLCHOLINE CHLORIDE 100 MG/5 ML SYR IV ONE (07:55)
[2021-08-31] MEDS ORDERED: GLYCOPYRROLATE 0.2 MG/ML 2 ML VIAL ONE (07:55)
[2021-08-31] MEDS ORDERED: PROPOFOL 10 MG/ML 20 ML VIAL IV ONE (07:55)
[2021-08-31] MEDS ORDERED: ROCURONIUM 10 MG/ML (5 ML VIAL) IV ONE (07:55)
[2021-08-31] MEDS ORDERED: MIDAZOLAM 2 MG/2 ML VIAL ONE (07:55)
[2021-08-31] MEDS ORDERED: NEOSTIGMINE 1 MG/ML 10 ML VIAL ONE (07:55)
[2021-08-31] MEDS ORDERED: BUPIVACAINE (PF) 0.25% 30 ML VIAL SQ ONE (08:26)
--- NOTE | 2021-08-31 08:47 | P.OP ---
Date of Procedure: 08/31/21 Preoperative Diagnosis: 1. family planning Postoperative Diagnosis: 1.family planning Procedure(s) Performed: laparoscopic tubal ligation Anesthesia: SILVIA Surgeon: Kaylen Arvizu Estimated Blood Loss (ml): 5 IV fluids (ml): 500 Urine output (ml): 40 Pathology: none sent Condition: stable Disposition: PACU Operative Findings: normal uterus, tubes and ovaries Description of Procedure: Patient was taken to the operating room where general anesthesia was obtained without difficulty. She was prepped and draped in normal sterile fashion in the dorsal lithotomy position, legs placed in the Kj stirrups. Bladder drained of all urine. Leola speculum placed in the vagina and the anterior lip the cervix was grasped with single-tooth tenaculum. The uterus is sounded to 8cm and the kroner manipulator was placed. Attention was then turned to the abdomen and gloves were changed. A 10 mm infraumbilical incision was made the scalpel and 10 mm optical trocar was placed under direct visualization. A 5 mm suprapubic Incision was made and a 5 mm optical trocar was placed under direct visualization. Survey of the pelvis revealed normal uterus tubes and ovaries. The left fallopian tube was grasped with a Kleppinger and fulgurated 2-3 cm on this side in the ampullar portion. The right fallopian tube was grasped with a Kleppinger and fulgurated 2-3 cm in the ampullar portion. All instruments were then removed from the abdomen and vagina. The 10 mm infraumbilical incision was closed with 0 Vicryl and the fascial layer and then 4-0 Vicryl in a subcuticular fashion. The 5 mm incision was closed with 4-0 Vicryl in a subcuticular fashion. Patient tolerated procedure well, sponge and instrument counts correct 2 and she was taken to recovery room in stable condition.
[2021-08-31 09:00] VITALS: TEMP 97
[2021-08-31] MEDS ORDERED: KETOROLAC 15 MG/ML 1 ML VIAL IVP ONE (09:12)
[2021-08-31 09:53] VITALS: RESP 18
[2021-08-31 10:10] VITALS: BP 127/67; PULSE 78
== END 2021-08-31 10:21 | disposition home or self-care (01) ==
LOC: OR 06:48
PROVIDERS: ATTEND Obstetrics & Gynecology
DX: Z30.2 Encounter for sterilization (principal); Z87.19 Personal history of other diseases of the digestive system; F17.200 Nicotine dependence, unspecified, uncomplicated; Z84.1 Family history of disorders of kidney and ureter; Z91.048 Other nonmedicinal substance allergy status
CPT/HCPCS: 81025; 58670; J2250; J1100; J2710; J2405; J2001; J3010; J1885; J0330; J2704

== ENCOUNTER 2022-10-26 12:20 | Emergency (ER) | payer OTHER ==
[2022-10-26 12:39] VITALS: BP 133/81; PULSE 54; RESP 18; TEMP 97.5
[2022-10-26] MEDS ORDERED: SODIUM CHLORIDE 0.9% 1,000 ML IV STA (12:39)
--- NOTE | 2022-10-26 12:45 | ED ---
Nausea/Vomiting/Diarrhea HPI - General Source: patient, family, RN notes reviewed Mode of arrival: wheelchair Limitations: no limitations - History of Present Illness MD complaint: nausea, vomiting, diarrhea <Ame Blackman - Last Filed: 10/26/22 12:50> <Allie Jiménez - Last Filed: 10/30/22 22:33> - General Chief complaint: Nausea/Vomiting/Diarrhea Stated complaint: Vomiting Time Seen by Provider: 10/26/22 12:35 - History of Present Illness Initial comments: This is a 32-year-old female who presents to the emergency department for nausea, vomiting, and epigastric pain. States that she has history of gastritis and pancreatitis, and this feels like a gastritis flareup to her. Symptoms started at around 7 AM. Denies any diarrhea or constipation. (Ame Blackman) 32-year-old female with a history of pancreatitis who presents to the emergency department with a chief complaint of nausea, vomiting, epigastric pain that started today. She reports that this feels similar to her previous gastritis flareups. She has not taken anything for her symptoms. She denies any fever, chills, chest pain, shortness of breath, flank pain, dysuria, hematuria, melena, hematochezia. Patient denies any recent alcohol use. (Allie Vaughn) - Related Data Home Medications Medication Instructions Recorded Confirmed No Known Home Medications 10/26/22 10/26/22 Allergies Allergy/AdvReac Type Severity Reaction Status Date / Time Bleach (Sodium Hypochlorite) Allergy Rash/Hives Verified 10/26/22 14:50 Review of Systems ROS Other: All systems not noted in ROS Statement are negative. <Ame Blackman - Last Filed: 10/26/22 12:50> ROS Other: All systems not noted in ROS Statement are negative. <Allie Jiménez - Last Filed: 10/30/22 22:33> ROS Statement: Those systems with pertinent positive or pertinent negative responses have been documented in the HPI. Past Medical History Past Medical History: No Reported History Additional Past Medical History / Comment(s): Pancreatitis, gastritis, History of Any Multi-Drug Resistant Organisms: None Reported Past Surgical History: No Surgical Hx Reported Past Anesthesia/Blood Transfusion Reactions: No Reported Reaction Past Psychological History: Anxiety Smoking Status: Current every day smoker Past Alcohol Use History: None Reported Past Drug Use History: Marijuana - Past Family History Mother Family Medical History: No Reported History, Renal Disease <Ame Blackman - Last Filed: 10/26/22 12:50> General Exam <Ame Blackman - Last Filed: 10/26/22 12:50> General appearance: alert, in no apparent distress Head exam: Present: atraumatic, normocephalic, normal inspection Eye exam: Present: normal appearance, PERRL, EOMI. Absent: scleral icterus, conjunctival injection, periorbital swelling ENT exam: Present: normal exam, mucous membranes moist Neck exam: Present: normal inspection. Absent: tenderness, meningismus, lymphadenopathy Respiratory exam: Present: normal lung sounds bilaterally. Absent: respiratory distress, wheezes, rales, rhonchi, stridor Cardiovascular Exam: Present: regular rate, normal rhythm, normal heart sounds. Absent: systolic murmur, diastolic murmur, rubs, gallop, clicks GI/Abdominal exam: Present: soft, normal bowel sounds. Absent: distended, tenderness, guarding, rebound, rigid Extremities exam: Present: normal inspection, full ROM, normal capillary refill. Absent: tenderness, pedal edema, joint swelling, calf tenderness Back exam: Present: normal inspection Neurological exam: Present: alert, oriented X3, CN II-XII intact Psychiatric exam: Present: normal affect, normal mood Skin exam: Present: warm, dry, intact, normal color. Absent: rash <Allie Jiménez - Last Filed: 10/30/22 22:33> - General Exam Comments Initial Comments: Visual Physical Exam Vital signs reviewed General: Acute distress Head: Normocephalic, atraumatic Eyes: PERRLA, EOMI ENT: Airway patent Chest: Nonlabored breathing Skin: No visual rash, normal skin tone Neuro: Alert and oriented 3 Musculoskeletal: No gross abnormalities (Ame Blackman) Course Vital Signs 10/26/22 12:34 Temperature 97.5 F L Pulse Rate 54 L Respiratory 18 Rate Blood Pressure 133/81 O2 Sat by Pulse 100 Oximetry Medical Decision Making - Lab Data Result diagrams: 10/26/22 13:13 10/26/22 13:13 <Allie Jiménez - Last Filed: 10/30/22 22:33> - Medical Decision Making Was pt. sent in by a medical professional or institution ([facility], OCEANOGRAPHIC METEOROLOGIST, urgent care, hospital, or custodial...) When possible be specific @ -[No] Did you speak to anyone other than the patient for history (EMS, parent, family, police, friend...)? What history was obtained from this source @ -[No] Did you review nursing and triage notes (agree or disagree)? Why? @ -[I reviewed and agree with nursing and triage notes] Were old charts reviewed (outside hosp., previous admission, EMS record, old EKG, old radiological studies, urgent care reports/EKG's, custodial records)? Report findings @ -[No old charts were reviewed] Differential Diagnosis (chest pain, altered mental status, abdominal pain women, abdominal pain men, vaginal bleeding, weakness, fever, dyspnea, syncope, headache, dizziness, GI bleed, back pain, seizure, CVA, palpatations, mental health, musculoskeletal)? @ -[not applicable] EKG interpreted by me (3pts min.). @ -[As above] X-rays interpreted by me (1pt min.). @ -[None done] CT interpreted by me (1pt min.). @ -[None done] U/S interpreted by me (1pt. min.). @ -[None done] What testing was considered but not performed or refused? (CT, X-rays, U/S, labs)? Why? @ -[None] What meds were considered but not given or refused? Why? @ -[None] Did you discuss the management of the patient with other professionals (professionals i.e. [facility]ope, OCEANOGRAPHIC METEOROLOGIST, lab, RT, psych nurse, medical social worker, pitting machine operator, teacher, student officer, social work case manager)? Give summary @ -[No] Was smoking cessation discussed for >3mins.? @ -[No] Was critical care preformed (if so, how long)? @ -[No] Were there social determinants of health that impacted care today? How? (Homelessness, low income, unemployed, alcoholism, drug addiction, transportation, low edu. Level, literacy, decrease access to med. care, senior care, rehab)? @ -[No] Was there de-escalation of care discussed even if they declined (Discuss DNR or withdrawal of care, Hospice)? DNR status @ -[No] What co-morbidities impacted this encounter? (DM, HTN, Smoking, COPD, CAD, Cancer, CVA, ARF, Chemo, Hep., AIDS, mental health diagnosis, sleep apnea, morbid obesity)? @ -[None] Was patient admitted / discharged? Hospital course, mention meds given and route, prescriptions, significant lab abnormalities, going to OR and other pertinent info. @ -Discharged. 32-year-old female coming in for nausea and vomiting. Patient had a thorough history and physical performed on the ED. Physical exam reveals a heart rate regular rate and rhythm, lungs clear to auscultation bilaterally with mild epigastric tenderness. Patient had lab work that was essentially unremarkable without any evidence of pancreatitis on the ED. I discussed the results in detail with the patient who verbalized understanding. She was given morphine, Zofran, 1 L of IV fluids with symptomatic relief on the ED. Return precautions were discussed and the patient was discharged in stable condition. Case discussed with Dr. Juárez Adriano who agrees with plan of care Undiagnosed new problem with uncertain prognosis? @ -[No] Drug Therapy requiring intensive monitoring for toxicity (Heparin, Nitro, Insulin, Cardizem)? @ -[No] Were any procedures done? @ -[No] Diagnosis/symptom? @ -acute abdominal pain - nausea and vomiting Acute, or Chronic, or Acute on Chronic? @ -acute Uncomplicated (without systemic symptoms) or Complicated (systemic symptoms)? @ -uncomoplicated Side effects of treatment? @ -[No] Exacerbation, Progression, or Severe Exacerbation? @ -[No] Poses a threat to life or bodily function? How? (Chest pain, USA, SD, pneumonia, PE, COPD, DKA, ARF, appy, cholecystitis, CVA, Diverticulitis, Homicidal, Suicidal, threat to staff... and all critical care pts) @ -[No] (Allie Jiménez) - Lab Data Lab Results 10/26/22 10/26/22 10/26/22 Range/Units 13:13 13:13 13:13 WBC 22.3 H (3.8-10.6) k/uL RBC 4.07 (3.80-5.40) m/uL Hgb 12.6 (11.4-16.0) gm/dL Hct 37.6 (34.0-46.0) % MCV 92.4 (80.0-100.0) fL MCH 31.0 (25.0-35.0) pg MCHC 33.6 (31.0-37.0) g/dL RDW 13.3 (11.5-15.5) % Plt Count 296 (150-450) k/uL MPV 8.8 Neutrophils % 92 % Lymphocytes % 5 % Monocytes % 2 % Eosinophils % 0 % Basophils % 0 % Neutrophils # 20.6 H (1.3-7.7) k/uL Lymphocytes # 1.1 (1.0-4.8) k/uL Monocytes # 0.5 (0-1.0) k/uL Eosinophils # 0.1 (0-0.7) k/uL Basophils # 0.0 (0-0.2) k/uL Sodium 139 (137-145) mmol/L Potassium 4.3 (3.5-5.1) mmol/L Chloride 111 H (98-107) mmol/L Carbon Dioxide 19 L (22-30) mmol/L Anion Gap 9 mmol/L BUN 11 (7-17) mg/dL Creatinine 0.52 (0.52-1.04) mg/dL Est GFR (CKD-EPI)AfAm >90 (>60 ml/min/1.73 sqM) Est GFR (CKD-EPI)NonAf >90 (>60 ml/min/1.73 sqM) Glucose 143 H (74-99) mg/dL Calcium 9.2 (8.4-10.2) mg/dL Total Bilirubin 1.1 (0.2-1.3) mg/dL AST 28 (14-36) U/L ALT 23 (4-34) U/L Alkaline Phosphatase 53 (38-126) U/L Total Protein 7.0 (6.3-8.2) g/dL Albumin 4.4 (3.5-5.0) g/dL Amylase 52 (30-110) U/L Lipase 41 (23-300) U/L Urine Color Yellow Urine Appearance Cloudy H (Clear) Urine pH 8.5 H (5.0-8.0) Ur Specific [place] 1.021 (1.001-1.035) Urine Protein 1+ H (Negative) Urine Glucose (UA) Negative (Negative) Urine Ketones 1+ H (Negative) Urine Blood Negative (Negative) Urine Nitrite Negative (Negative) Urine Bilirubin Negative (Negative) Urine Urobilinogen <2.0 (<2.0) mg/dL Ur Leukocyte Esterase Negative (Negative) Urine RBC 1 (0-5) /hpf Urine WBC 2 (0-5) /hpf Ur Squamous Epith Cells 39 H (0-4) /hpf Urine Bacteria Rare H (None) /hpf Urine Mucus Rare H (None) /hpf Urine HCG, Qual (Not Detectd) 10/26/22 Range/Units 13:13 WBC (3.8-10.6) k/uL RBC (3.80-5.40) m/uL Hgb (11.4-16.0) gm/dL Hct (34.0-46.0) % MCV (80.0-100.0) fL MCH (25.0-35.0) pg MCHC (31.0-37.0) g/dL RDW (11.5-15.5) % Plt Count (150-450) k/uL MPV Neutrophils % % Lymphocytes % % Monocytes % % Eosinophils % % Basophils % % Neutrophils # (1.3-7.7) k/uL Lymphocytes # (1.0-4.8) k/uL Monocytes # (0-1.0) k/uL Eosinophils # (0-0.7) k/uL Basophils # (0-0.2) k/uL Sodium (137-145) mmol/L Potassium (3.5-5.1) mmol/L Chloride (98-107) mmol/L Carbon Dioxide (22-30) mmol/L Anion Gap mmol/L BUN (7-17) mg/dL Creatinine (0.52-1.04) mg/dL Est GFR (CKD-EPI)AfAm (>60 ml/min/1.73 sqM) Est GFR (CKD-EPI)NonAf (>60 ml/min/1.73 sqM) Glucose (74-99) mg/dL Calcium (8.4-10.2) mg/dL Total Bilirubin (0.2-1.3) mg/dL AST (14-36) U/L ALT (4-34) U/L Alkaline Phosphatase (38-126) U/L Total Protein (6.3-8.2) g/dL Albumin (3.5-5.0) g/dL Amylase (30-110) U/L Lipase (23-300) U/L Urine Color Urine Appearance (Clear) Urine pH (5.0-8.0) Ur Specific [place] (1.001-1.035) Urine Protein (Negative) Urine Glucose (UA) (Negative) Urine Ketones (Negative) Urine Blood (Negative) Urine Nitrite (Negative) Urine Bilirubin (Negative) Urine Urobilinogen (<2.0) mg/dL Ur Leukocyte Esterase (Negative) Urine RBC (0-5) /hpf Urine WBC (0-5) /hpf Ur Squamous Epith Cells (0-4) /hpf Urine Bacteria (None) /hpf Urine Mucus (None) /hpf Urine HCG, Qual Not Detected (Not Detectd) Disposition <Ame Blackman - Last Filed: 10/26/22 12:50> Is patient prescribed a controlled substance at d/c from ED?: No Time of Disposition: 18:16 <Allie Jiménez - Last Filed: 10/30/22 22:33> Clinical Impression: Abdominal pain, Nausea & vomiting Disposition: HOME SELF-CARE Condition: Stable Instructions (If sedation given, give patient instructions): Acute Nausea and Vomiting (ED), Abdominal Pain (ED) Additional Instructions: Please return to the nearest emergency department if symptoms worsen or persist Referrals: None,Stated [Primary Care Provider] - 1-2 days
[2022-10-26 13:45] LABS: Basophils % (A) 0 %; Eosinophils # (A) 0.1 k/uL (0-0.7); Eosinophils % (A) 0 %; HCT 37.6 % (34.0-46.0); HGB 12.6 gm/dL (11.4-16.0); Lymphocytes # (A) 1.1 k/uL (1.0-4.8); Lymphocytes % (A) 5 %; MCHC 33.6 g/dL (31.0-37.0); MCV 92.4 fL (80.0-100.0); Mean Platelet Volume 8.8; Monocytes # (A) 0.5 k/uL (0-1.0); Monocytes % (A) 2 %; Neutrophils # (A) 20.6 k/uL (1.3-7.7); Neutrophils % (A) 92 %; Platelet Count 296 k/uL (150-450); RBC 4.07 m/uL (3.80-5.40); RDW 13.3 % (11.5-15.5); WBC 22.3 k/uL (3.8-10.6)
--- NOTE | 2022-10-26 13:51 | US ---
EXAMINATION TYPE: US gallbladder DATE OF EXAM: 10/26/2022 COMPARISON: 04/19/2021. CLINICAL HISTORY: Epigastric pain with nausea and vomiting. TECHNIQUE: Multiple sonographic images of the right upper quadrant are obtained. FINDINGS: EXAM MEASUREMENTS: Liver Length: 17.7 cm Gallbladder Wall: 0.2 cm CBD: 0.4 cm Right Kidney: 12.0 x 4.0 x 6.0 cm [employer] NOTES: Pancreas: wnl Liver: wnl Gallbladder: wnl Evidence for sonographic Zamora's sign: No CBD: wnl Right Kidney: wnl No abnormality visualized within RUQ IMPRESSION: 1. No evidence of cholelithiasis or cholecystitis. 2. No evidence of biliary ductal dilation. 3. No evidence of right-sided hydronephrosis.
[2022-10-26 13:54] LABS: ALT 23 U/L (4-34); AST 28 U/L (14-36); African American GFR (CKD) >90 (>60 ml/min/1.73 sqM); Albumin 4.4 g/dL (3.5-5.0); Alkaline Phosphatase 53 U/L (38-126); Amylase 52 U/L (30-110); Anion Gap 9 mmol/L; Blood Urea Nitrogen 11 mg/dL (7-17); Calcium 9.2 mg/dL (8.4-10.2); Carbon Dioxide 19 mmol/L (22-30); Chloride 111 mmol/L (98-107); Glucose 143 mg/dL (74-99); Lipase 41 U/L (23-300); Non-African American GFR(CKD) >90 (>60 ml/min/1.73 sqM); Potassium 4.3 mmol/L (3.5-5.1); Sodium 139 mmol/L (137-145); Total Bilirubin 1.1 mg/dL (0.2-1.3)
[2022-10-26] MEDS ORDERED: ONDANSETRON 4 MG/2 ML VIAL IVP STA (13:59)
[2022-10-26] MEDS ORDERED: FAMOTIDINE 20 MG/2 ML VIAL IV STA (13:59)
[2022-10-26] MEDS ORDERED: KETOROLAC 15 MG/ML 1 ML VIAL IVP STA ×2 (16:13→16:50)
[2022-10-26] MEDS ORDERED: MAG HYDROX/AL HYDROX/SIMETH 30 ML, HYOSCYAMINE ELIXIR 10 ML, LIDOCAINE VISCOUS 2% 10 ML PO STA ×3 (16:50)
[2022-10-26] MEDS ORDERED: MORPHINE SULFATE 2 MG/ML SYRINGE IVP ONE ×2 (17:01→18:16)
[2022-10-26] MEDS ORDERED: SODIUM CHLORIDE 0.9% 500 ML 500 ML IV ONE (17:09)
[2022-10-26 17:45] LABS: Appearance,Urine Cloudy (Clear); Bacteria,Urine Rare /hpf; Bilirubin,Urine Negative (Negative); Blood,Urine Negative (Negative); Color,Urine Yellow; Glucose,Urine (UA) Negative (Negative); Ketones,Urine 1+ (Negative); Leukocyte Esterase,Urine Negative (Negative); Mucus,Urine Rare /hpf; Nitrite,Urine Negative (Negative); PH, Urine 8.5 (5.0-8.0); Protein,Urine 1+ (Negative); RBC,Urine 1 /hpf (0-5); Specific Gravity,Urine 1.021 (1.001-1.035); Squamous Epithelial Cell,Urine 39 /hpf (0-4); Urobilinogen,Urine <2.0 mg/dL (<2.0); WBC,Urine 2 /hpf (0-5)
[2022-10-26] MEDS ORDERED: ONDANSETRON 4 MG ODT STARTER PACK 2 TAB BTL PO STA (18:17)
== END 2022-10-26 20:12 | disposition home or self-care (01) ==
LOC: EC 12:20
DX: R11.2 Nausea with vomiting, unspecified (principal); R10.9 Unspecified abdominal pain; F41.9 Anxiety disorder, unspecified; F17.200 Nicotine dependence, unspecified, uncomplicated; F12.90 Cannabis use, unspecified, uncomplicated; Z91.048 Other nonmedicinal substance allergy status
CPT/HCPCS: 36415; 80053; 82150; 83690; 85025; 81001; 81025; 76705; 99284; 96374; 96375 ×3; 96376; 96361; J2405; J2270; J1885; S0119